=== PATIENT | male | born 1960 | race Caucasian/White ===

== ENCOUNTER 2021-08-30 05:57 | Outpatient (REF) | payer OTHER, SELFPAY ==
[2021-08-30 06:07] LABS: MANUAL DIFF FLAG NO
[2021-08-30 07:26] LABS: Basophils Percent Auto 0.6 % (0-2); Eosinophils Absolute Auto 0.3 X10*3/uL (0.0-0.4); Eosinophils Percent Auto 4.8 % (0-4); Hematocrit 44.8 % (42.0-52.0); Hemoglobin 15.2 g/dl (14.0-18.0); Imm Gran Abs Auto 0.02 X10*3/uL (0.00-0.03); Imm Gran Pct Auto 0.4 % (0.0-0.4); Lymphocytes Absolute Auto 1.8 X10*3/uL (1.2-4.9); Lymphocytes Percent Auto 32.4 % (20-40); Mean Corpuscular HGB Conc 33.9 g/dl (31.0-36.0); Mean Corpuscular Hemoglobin 30.3 pg (27.0-33.0); Mean Corpuscular Volume 89.2 fL (80.0-98.0); Mean Platelet Volume 10.8 fL (9.4-12.4); Monocytes Absolute Auto 0.7 X10*3/uL (0.1-1.2); Monocytes Percent Auto 13.1 % (2-11); Neutrophils Absolute Auto 2.7 x10*3/uL (2.0-8.3); Neutrophils Percent Auto 48.7 % (45-73); Platelet Count 219 X10*3/uL (160-400); Red Blood Count 5.02 X10*6/uL (4.60-5.80); White Blood Count 5.4 X10*3/uL (4.8-10.8)
[2021-08-30 07:59] LABS: Alanine Aminotransferase 25 U/L (0-40); Albumin Level 4.3 g/dL (3.5-5.0); Alkaline Phosphatase 73 U/L (39-117); Anion Gap 13 (12-20); Aspartate Amino Transferase 21 U/L (5-37); Bilirubin Total 0.7 mg/dL (0.0-1.0); Blood Urea Nitrogen 18 mg/dL (9-16); Calcium 9.2 mg/dL (8.4-10.2); Carbon Dioxide 28 mmol/L (22-29); Chloride 101 mmol/L (96-108); Cholesterol 256 mg/dL; Estimated Glomerular Filt Rate > 60; Glucose Fasting 101 mg/dL (60-99); HDL Cholesterol 69 mg/dL; LDL Cholesterol Calculated 162 mg/dl; Potassium 4.5 mmol/L (3.3-5.1); Sodium 137 mmol/L (135-145); Total Protein 6.8 g/dL (6.5-8.0); Triglycerides 129 mg/dL
[2021-08-30 08:33] LABS: Appearance Urine CLEAR; Color Urine YELLOW; Glucose Urine UA NEG (NEG); Leukocyte Esterase Urine NEG (NEG); Nitrite Urine NEG (NEG); Urine Blood NEG (NEG); Urine Ketones NEG (NEG); Urine Protein NEG (NEG-TRACE)
[2021-08-30 08:34] LABS: Prostate Specific Antigen 0.27 ng/mL (<0.05-4.0); TSH reflex Free T4 2.34 uIU/mL (0.32-4.0); Vitamin D 25-OH Total 24.2 ng/mL (>30)
== END 2021-08-30 05:58 | disposition home or self-care (01) ==
LOC: HO.LAB 05:57
PROVIDERS: PCP Internal Medicine; Visit Provider Internal Medicine
DX: Z00.00 Encounter for general adult medical examination without abnormal findings (principal); Z12.5 Encounter for screening for malignant neoplasm of prostate; N40.0 Benign prostatic hyperplasia without lower urinary tract symptoms; I10 Essential (primary) hypertension; E55.9 Vitamin D deficiency, unspecified; E78.00 Pure hypercholesterolemia, unspecified
CPT/HCPCS: 36415; 80053; 80061; 81003; 82306; 84153; 84443; 85025

== ENCOUNTER 2022-08-29 05:57 | Outpatient (REF) | payer OTHER, SELFPAY ==
[2022-08-29 06:09] LABS: MANUAL DIFF FLAG NO
[2022-08-29 07:30] LABS: Basophils Percent Auto 0.6 % (0-2); Eosinophils Absolute Auto 0.2 X10*3/uL (0.0-0.4); Eosinophils Percent Auto 4.3 % (0-4); Hematocrit 44.7 % (42.0-52.0); Hemoglobin 15.2 g/dl (14.0-18.0); Imm Gran Abs Auto 0.01 X10*3/uL (0.00-0.03); Imm Gran Pct Auto 0.2 % (0.0-0.4); Lymphocytes Absolute Auto 1.7 X10*3/uL (1.2-4.9); Lymphocytes Percent Auto 32.2 % (20-40); Mean Corpuscular Hemoglobin 30.2 pg (27.0-33.0); Mean Corpuscular Volume 88.9 fL (80.0-98.0); Mean Platelet Volume 10.8 fL (9.4-12.4); Monocytes Absolute Auto 0.6 X10*3/uL (0.1-1.2); Monocytes Percent Auto 10.7 % (2-11); Neutrophils Absolute Auto 2.8 x10*3/uL (2.0-8.3); Platelet Count 209 X10*3/uL (160-400); Red Blood Count 5.03 X10*6/uL (4.60-5.80); Red Cell Distribution Width 12.8 % (11.0-16.0); White Blood Count 5.4 X10*3/uL (4.8-10.8)
[2022-08-29 08:07] LABS: Alanine Aminotransferase 28 U/L (0-40); Albumin Level 4.4 g/dL (3.5-5.0); Alkaline Phosphatase 69 U/L (39-117); Anion Gap 12 (12-20); Aspartate Amino Transferase 22 U/L (5-37); Bilirubin Total 1.1 mg/dL (0.0-1.0); Blood Urea Nitrogen 16 mg/dL (9-16); Calcium 9.2 mg/dL (8.4-10.2); Carbon Dioxide 27 mmol/L (22-29); Chloride 103 mmol/L (96-108); Cholesterol 220 mg/dL; Estimated Glomerular Filt Rate > 60; Glucose Fasting 98 mg/dL (60-99); HDL Cholesterol 78 mg/dL; LDL Cholesterol Calculated 121 mg/dl; Potassium 4.1 mmol/L (3.3-5.1); Sodium 138 mmol/L (135-145); Total Protein 6.7 g/dL (6.5-8.0); Triglycerides 105 mg/dL
[2022-08-29 08:31] LABS: Prostate Specific Antigen Scr 0.34 ng/mL (<0.05-4.0); TSH reflex Free T4 2.87 uIU/mL (0.32-4.0); Vitamin D 25-OH Total 28.6 ng/mL (>30)
[2022-08-29 09:02] LABS: Appearance Urine Clear; Color Urine Yellow; Glucose Urine UA Negative (Negative); Leukocyte Esterase Urine Negative (Negative); Nitrite Urine Negative (Negative); PH 6.5 (5.0-9.0); Urine Blood Negative (Negative); Urine Ketones Negative (Negative); Urine Protein Negative (Neg-Trace)
== END 2022-08-29 05:58 | disposition home or self-care (01) ==
LOC: HO.LAB 05:57
PROVIDERS: PCP Internal Medicine; Visit Provider Internal Medicine
DX: Z00.00 Encounter for general adult medical examination without abnormal findings (principal); Z12.5 Encounter for screening for malignant neoplasm of prostate; E55.9 Vitamin D deficiency, unspecified; I10 Essential (primary) hypertension; R30.0 Dysuria; E78.00 Pure hypercholesterolemia, unspecified
CPT/HCPCS: 36415; 80053; 80061; 81003; 82306; 84153; 84443; 85025

== ENCOUNTER 2023-03-01 05:56 | Outpatient (REF) | payer OTHER, SELFPAY ==
[2023-03-01 08:15] LABS: Alanine Aminotransferase 28 U/L (0-40); Albumin Level 4.4 g/dL (3.5-5.0); Alkaline Phosphatase 72 U/L (39-117); Anion Gap 11 (12-20); Aspartate Amino Transferase 21 U/L (5-37); Bilirubin Total 0.8 mg/dL (0.0-1.0); Blood Urea Nitrogen 19 mg/dL (9-16); Calcium 9.4 mg/dL (8.4-10.2); Carbon Dioxide 27 mmol/L (22-29); Chloride 104 mmol/L (96-108); Cholesterol 202 mg/dL (<200); Estimated Glomerular Filt Rate > 60; Glucose Fasting 103 mg/dL (60-99); HDL Cholesterol 66 mg/dL (>40); LDL Cholesterol Calculated 114 mg/dL (<100); Potassium 3.9 mmol/L (3.3-5.1); Sodium 138 mmol/L (135-145); Total Protein 7.2 g/dL (6.5-8.0); Triglycerides 111 mg/dL (<150)
[2023-03-01 08:34] LABS: Vitamin D 25-OH Total 27.5 ng/mL (>30)
== END 2023-03-01 05:57 | disposition home or self-care (01) ==
LOC: HO.LAB 05:56
PROVIDERS: PCP Internal Medicine; Visit Provider Internal Medicine
DX: E55.9 Vitamin D deficiency, unspecified (principal); E78.00 Pure hypercholesterolemia, unspecified
CPT/HCPCS: 36415; 80053; 80061; 82306

== ENCOUNTER 2023-03-02 09:11 | Outpatient (AMB) | payer OTHER, SELFPAY ==
[2023-03-02 09:12] VITALS: BP 132/80; PULSE 78; O2SAT 96; BMI 32.2
--- NOTE | 2023-03-02 09:12 | A.OFFPC_ITS ---
Vital Signs 03/02/23 09:12 Height 5 ft 7.5 in Weight 209 lb BMI 32.2 BP 132/80 Blood Pressure Location Lt brachial Position Sitting Pulse 78 Pulse Source Pulse Oximeter Pulse Oximetry (%) 96 Oxygen Delivery Method Room Air Intake Visit Reasons: HTN, hyperlipidemia Zigzag Machine Operator Required: No Accompanied by: Self / Same As Patient Allergies fish derived [FISH] Allergy (Severe, Verified 03/02/23 09:51) ANAPHYLAXIS seafood Allergy (Severe, Uncoded 03/02/23 09:51) Anaphylaxis Medication List - Last Reconciled 03/02/23 by Alex Grady MD atorvastatin 20 mg PO DAILY 90 days cholecalciferol (vitamin D3) 50 mcg PO DAILY 90 days epinephrine (EpiPen 2-Chalo) 0.3 mg (0.3 mL) IM Q4H PRN lisinopril 5 mg PO DAILY 90 days Tobacco use date assessed: 03/02/23 Dental Screening Dental Screen Date: 03/02/23 Did you have a dental visit in the last 12 months?: Yes Did you have a dental problem in the last 6 months where you did not have access to dental care?: No Was dental information given to patient?: Patient has dentist HPI HTN, hyperlipidemia HPI Details Patient comes in today for his follow up visit States that he feels okay except for some recurrent nasal and sinus congestion lately Notes that he often wakes up in the morning feeling congested and this will slowly ease up over some time Also started experiencing some pressure-like sensation in his right ear lately Is wondering if he is coming down with a sinus infection He denies any fever or sore throat; denies any headaches or dizziness Still has occasional ringing sensation in his ear and was seen and evaluated by ENT a few months ago Was advised that he has no abnormal findings and as his symptoms are not unbearable, recommend no further intervention at this time Denies any chest pains, no SOB No nausea/vomiting, no abdominal pain No change in bowel habits noted Had his follow up labs done yesterday - to discuss his results [facility] Medical History Vitamin D deficiency Smoker Obesity (BMI 30-39.9) Pure hypercholesterolemia Benign essential hypertension Benign lymphoid polyp of colon Surgical History History of colonoscopy (~08/14/14) Hx laparoscopic cholecystectomy Family History Brother Substance abuse Other Alcohol abuse Social History Housing: House Alcohol intake: current Alcohol intake frequency: a few times a week Patient Tobacco Use Status: Current someday Tobacco user Tobacco use type: Cigarette and Cigar e-Cigarette/Vaping Use: Never Used Second Hand Smoke Exposure: Yes service: No Current occupational status: retired Cognitive needs: No Hearing needs: No Vision needs: No Questionnaire PHQ-9 Over the last 2 weeks, how often have you been bothered by any of the following problems? 1. Little interest or pleasure in doing things: not at all 2. Feeling down, depressed, or hopeless: not at all 3. Trouble falling or staying asleep, or sleeping too much: not at all 4. Feeling tired or having little energy: not at all 5. Poor appetite or overeating: not at all 6. Feeling bad about yourself - or that you are a failure or have let yourself or your family down: not at all 7. Trouble concentrating on things, such as reading the newspaper or watching television: not at all 8. Moving or speaking so slowly that other people could have noticed. Or the opposite - being so fidgety or restless that you have been moving around a lot more than usual: not at all 9. Thoughts that you would be better off or of hurting yourself in some way: not at all Total score: 0 Depression Screening Interpretation: Negative Depression Screening Done: Yes 93119 - PHQ-9 Billing: Yes Source: Developed by Drs. Palomo Felipe, Danielle Parker, Erick Escalera and colleagues, with an educational karthik from [employer]. Thrive Questionnaire Date Thrive assessed: 03/02/23 I am a: Patient What is your living situation today?: I have a steady place to live Within the past 12 months, did the food you bought not last and you didn't have the money to get more?: Never true Within the past 12 months, did you worry whether your food would run out before you got money to buy more?: Never true Do you have trouble paying for medicines?: No Do you have trouble getting transportation to medical appointments?: No Do you have trouble paying your heating and electricity bill?: No Do you have trouble taking care of your child, family member or friend?: No Do you have trouble with day-to-day activities such as bathing, preparing meals, shopping, managing finances, etc.?: No Are you currently unemployed and looking for a job?: No Are you interested in more education?: No Please select the resources that you would like help with: None Currently or been in a relationship where the following occur: no concerns reported AUDIT C Alcohol Use Questionnaire (AUDIT-C) 1. How often do you have a drink containing alcohol?: 2-3 times a week 2. How many drinks containing alcohol do you have on a typical day when you are drinking?: 1 or 2 3. How often do you have six or more drinks on one occasion?: Never Total Score: 3 Score Reviewed/Action Taken: Yes ZION-7 AMB Questionnaire ZION-7 Date ZION - 7 assessed: 03/02/23 Feeling nervous, anxious, or on edge: 0 = Not at all Not being able to stop or control worryin = Not at all Worrying too much about different things: 0 = Not at all Trouble relaxin = Not at all Being so restless that it is hard to sit still: 0 = Not at all Becoming easily annoyed or irritable: 0 = Not at all Feeling afraid as if something awful might happen: 0 = Not at all Total ZION-7 score (0-4 normal; 5-9 mild; 10-14 moderate; 15-21 severe): 0 Source: Developed by Drs. Palomo Felipe, Danielle Parker, Erick Escalera and colleagues, with an educational karthik from [employer]. Review of Systems Const Denies chills, Denies fatigue, Denies fever(s) and Denies headache(s) ENT Details: (+) on and off humming sensation in his right ear Denies dysphagia, Denies dizziness, Denies ear discharge, Denies otalgia (but (+) pressure-like sensation in the right ear lately), Denies headache(s), Reports nasal congestion (on and off), Reports nasal discharge (on and off - see HPI), Denies neck pain, Denies odynophagia, Reports tinnitus (c/o on and off humming sensation in right ear - feels worse at night), Denies sinus pain and Denies sore throat Card Denies chest pain, Denies palpitations and Denies dyspnea Resp Denies cough and Denies dyspnea GI Denies abdominal pain, Denies constipation, Denies dysphagia, Denies heartburn, Denies diarrhea, Denies nausea, Denies odynophagia and Denies vomiting Denies difficulty urinating, Denies dysuria and Denies urinary frequency Musc Denies back pain and Denies neck pain Skin/Breast Denies rash Neuro Denies dizziness and Denies headache(s) Endo Denies fatigue and Denies palpitations Physical exam (Primary Care) Vital Signs: Last Vital Signs Pulse 78 03/02/23 09:12 BP 132/80 03/02/23 09:12 Pulse Ox 96 03/02/23 09:12 Oxygen Delivery Method Room Air 03/02/23 09:12 BMI result Body Mass Index 32.2 Tobacco/Smoking Status: Tobacco use Status Tobacco use date assessed 03/02/23 03/02/23 09:15 Patient Tobacco Use Status Current someday Tobacco 03/02/23 09:15 Tobacco use type Cigarette,Cigar 03/02/23 09:15 e-Cigarette/Vaping Use Never Used 03/02/23 09:15 PHQ-9: PHQ-9 Score PHQ-9: Total score 0 03/02/23 09:15 Depression Screening Interpretation: Negative Thrive Assessment: Date of Thrive Assessment Date Thrive assessed 03/02/23 03/02/23 09:15 Currently or been in a relationship where the following occur: no concerns reported Const General: no acute distress and alert HENMT Ears: TM's normal bilaterally and EAC's normal Throat: Yes posterior oropharynx normal and Yes tonsils normal (no TP congestion) Neck Neck: Yes no lymphadenopathy and Yes supple Resp Auscultation: clear to auscultation bilaterally, no rales and no wheezes Cardio Rate: regular rate Rhythm: regular rhythm Heart sounds: no murmurs GI Palpation (GI): Soft to palpation, nontender and No hepatosplenomegaly present Skin General skin exam: no rashes or lesions noted Extrem General: Yes no clubbing, cyanosis or edema Results Reviewed Results Reviewed: Laboratory Tests 08/29/22 03/01/23 03/01/23 06:08 06:09 06:09 Sodium 138 Potassium 3.9 Creatinine 1.02 Estimated GFR > 60 Fasting Glucose 103 H Calcium 9.4 AST 21 ALT 28 Triglycerides 111 Cholesterol 202 H LDL Cholesterol, Calc 114 H HDL Cholesterol 66 PSA Screen 0.34 25-OH Vitamin D Total 27.5 L Assessment and Plan Assessment & Plan (1) Pure hypercholesterolemia: Code(s): E78.00 - Pure hypercholesterolemia, unspecified Plan: Results of his labs done yesterday reviewed and discussed with patient - advised that his cholesterol levels have improved slightly from previous but this includes both his LDL and HDL cholesterol levels Reinforced low cholesterol diet Continue Atorvastatin 20 mg QD Will recheck his fasting lipids and labs in 6 months for follow up (2) Benign essential hypertension: Code(s): I10 - Essential (primary) hypertension Plan: Reinforced low sodium diet - goal is systolic BP of at least 120 to 130 mm or less Continue Lisinopril 5 mg QD Patient is reminded to monitor his blood pressure regularly (3) Vitamin D deficiency: Code(s): E55.9 - Vitamin D deficiency, unspecified Plan: Advised that his Vitamin D level is still low on his recent labs - States that he was not taking his Vitamin D supplement for a while but started back on it a couple of weeks ago - is instructed to continue taking it daily (4) Rhinitis: Code(s): J31.0 - Chronic rhinitis Qualifiers: Rhinitis type: unspecified Qualified Code(s): J31.0 - Chronic rhinitis Plan: Likely vasomotor and/or cold-induced Will start him on Fluticasone nasal spray 50 mcg QD He is advised to call if his symptoms persist or worsen despite Rx (5) Smoker: Code(s): F17.200 - Nicotine dependence, unspecified, uncomplicated Plan: Counseled again on smoking cessation (6) Obesity (BMI 30-39.9): Code(s): E66.9 - Obesity, unspecified Plan: Reinforced diet/exercise as tolerated/lose weight Plan To return in 6 months for his next annual physical examination Orders: Orders Lipid Panel 6 Months E78.00 - Pure hypercholesterolemia, unspecified, Z00.00 - Encounter for general adult medical examination without abnormal findings UA CC w/rflx Micro + Cult 6 Months R30.0 - Dysuria, Z00.00 - Encounter for general adult medical examination without abnormal findings Vitamin D 25-OH Total 6 Months E55.9 - Vitamin D deficiency, unspecified, Z00.00 - Encounter for general adult medical examination without abnormal findings Complete Blood Count Auto Diff 6 Months I10 - Essential (primary) hypertension, Z00.00 - Encounter for general adult medical examination without abnormal findings Comprehensive [place]. Panel Fast 6 Months E78.00 - Pure hypercholesterolemia, unspecified, Z00.00 - Encounter for general adult medical examination without abnormal findings TSH reflex Free T4 6 Months E78.00 - Pure hypercholesterolemia, unspecified, Z00.00 - Encounter for general adult medical examination without abnormal findings Prostate Specific Antigen 6 Months N40.0 - Benign prostatic hyperplasia without lower urinary tract symptoms, Z00.00 - Encounter for general adult medical examination without abnormal findings Medications: New fluticasone propionate 50 mcg/actuation administer into each nostril 2 sprays intranasal DAILY 30 days PRN 16 grams 5RF allergy symptoms Coding Level of Care Code Est Pt Level 4 (43645) Diagnoses Pure hypercholesterolemia E78.00 Benign essential hypertension I10 Vitamin D deficiency E55.9 Rhinitis, unspecified type J31.0 Rhinitis type: unspecified Smoker F17.200 Obesity (BMI 30-39.9) E66.9
== END 2023-03-02 10:05 | disposition home or self-care (01) ==
PROVIDERS: PCP Internal Medicine; Visit Provider Internal Medicine
DX: E78.00 Pure hypercholesterolemia, unspecified (principal); I10 Essential (primary) hypertension; E55.9 Vitamin D deficiency, unspecified; J31.0 Chronic rhinitis; F17.210 Nicotine dependence, cigarettes, uncomplicated; F01-F99 Mental, behavioral and neurodevelopmental disorders; E66.9 Obesity, unspecified
CPT/HCPCS: 99214

== ENCOUNTER 2023-08-20 08:07 | Outpatient (AMB) | payer OTHER, SELFPAY ==
--- NOTE | 2023-08-20 08:36 | MHC.OFFWIV ---
Intake Vital Signs 08/20/23 08:40 Height 5 ft 7.5 in Weight 213 lb BMI 32.9 BP 140/90 H Blood Pressure Location Lt brachial Position Sitting Pulse 73 Pulse Source Pulse Oximeter Temp 97.8 F Temp Source Temporal Artery Scan Pulse Oximetry (%) 96 Oxygen Delivery Method Room Air Intake Visit Reasons: EP rt foot poison hal/rash??? Intake Note: pt is here today for rt foot poison hal started 1 month ago Patient Tobacco Use Status: Current someday Tobacco user Allergies fish derived [FISH] Allergy (Severe, Verified 08/20/23 08:43) ANAPHYLAXIS seafood Allergy (Severe, Uncoded 08/20/23 08:43) Anaphylaxis Do you need a note to return to daycare/school/sports/work: No HPI HPI Comments History of Present Illness Details Patient presents to the walkin today for sick visit endorses rash to top of right foot for last one month reports had the same rash last summer, applied topical eczema cream and it resolved about one month ago the rash returned not painful but is itchy [facility] Medical History Vitamin D deficiency Smoker Obesity (BMI 30-39.9) Pure hypercholesterolemia Benign essential hypertension Benign lymphoid polyp of colon Surgical History History of colonoscopy (~08/14/14) Hx laparoscopic cholecystectomy Family History Brother Substance abuse Other Alcohol abuse Social History Housing: House Alcohol intake: current Alcohol intake frequency: a few times a week Patient Tobacco Use Status: Current someday Tobacco user Tobacco use type: Cigarette and Cigar e-Cigarette/Vaping Use: Never Used Second Hand Smoke Exposure: Yes service: No Current occupational status: retired Cognitive needs: No Hearing needs: No Vision needs: No Review of Systems Const All systems reviewed & are unremarkable except as noted in HPI and below Physical Exam Vital Signs: Last Vital Signs Temp 97.8 F 08/20/23 08:40 Pulse 73 08/20/23 08:40 BP 140/90 H 08/20/23 08:40 Pulse Ox 96 08/20/23 08:40 Oxygen Delivery Method Room Air 08/20/23 08:40 BMI result Body Mass Index 32.9 General: awake, alert, oriented. Answers questions appropriately. Fully engaged in examination. Skin: warm, dry, intact. 1cm X 1cm erythematous rash to top of right foot. dry, white around circumference. no weeping, drainage or streaking noted HEENT: Normocephalic. Hearing intact. Cardiac: External chest normal in appearance. Respiratory: No cough, audible wheezing or stridor. Abdomen: without gross distension. MS: No obvious swelling or deformities. Neurological: Oriented to person, place, time and situation. Thought process intact. No gait abnormalities appreciated. Psychiatric: Appropriate mood and affect. Good judgment and insight. Assessment & Plan Assessment & Plan (1) Dermatitis: Code(s): L30.9 - Dermatitis, unspecified Plan apply topical medication as prescribed follow up with dermatology, referral placed advised patient to avoid wearing shoes without socks until resolved follow up with pcp or return here for any new or worsening symptoms Orders: Referrals Dermatology Referral L30.9 - Dermatitis, unspecified Medications: New triamcinolone acetonide 0.1% 1 appl topical BID 30 grams 0RF Coding Level of Care Code Est Pt Level 3 (63811) Diagnoses Dermatitis L30.9
[2023-08-20 08:40] VITALS: BP 140/90; PULSE 73; TEMP 36.6; O2SAT 96; BMI 32.9
== END 2023-08-20 09:09 | disposition home or self-care (01) ==
PROVIDERS: PCP Internal Medicine; Visit Provider Registered Nurse Emergency
DX: L30.9 Dermatitis, unspecified (principal)
CPT/HCPCS: 99213

== ENCOUNTER 2023-08-30 06:00 | Outpatient (REF) | payer OTHER, SELFPAY ==
[2023-08-30 06:19] LABS: MANUAL DIFF FLAG NO
[2023-08-30 07:48] LABS: Basophils Percent Auto 0.4 % (0-2); Eosinophils Absolute Auto 0.3 X10*3/uL (0.0-0.4); Eosinophils Percent Auto 3.6 % (0-4); Hematocrit 46.4 % (42.0-52.0); Hemoglobin 15.8 g/dl (14.0-18.0); Imm Gran Abs Auto 0.02 X10*3/uL (0.00-0.03); Imm Gran Pct Auto 0.3 % (0.0-0.4); Lymphocytes Absolute Auto 2.1 X10*3/uL (1.2-4.9); Lymphocytes Percent Auto 30.5 % (20-40); Mean Corpuscular HGB Conc 34.1 g/dl (31.0-36.0); Mean Corpuscular Hemoglobin 30.7 pg (27.0-33.0); Mean Corpuscular Volume 90.1 fL (80.0-98.0); Mean Platelet Volume 10.7 fL (9.4-12.4); Monocytes Absolute Auto 0.7 X10*3/uL (0.1-1.2); Monocytes Percent Auto 10.6 % (2-11); Neutrophils Absolute Auto 3.8 x10*3/uL (2.0-8.3); Neutrophils Percent Auto 54.6 % (45-73); Platelet Count 231 X10*3/uL (160-400); Red Blood Count 5.15 X10*6/uL (4.60-5.80); Red Cell Distribution Width 12.7 % (11.0-16.0); White Blood Count 6.9 X10*3/uL (4.8-10.8)
[2023-08-30 08:16] LABS: Alanine Aminotransferase 28 U/L (0-40); Albumin Level 4.3 g/dL (3.5-5.0); Alkaline Phosphatase 70 U/L (39-117); Anion Gap 13 (12-20); Aspartate Amino Transferase 22 U/L (5-37); Bilirubin Total 0.7 mg/dL (0.0-1.0); Blood Urea Nitrogen 19 mg/dL (9-16); Calcium 9.3 mg/dL (8.4-10.2); Carbon Dioxide 27 mmol/L (22-29); Chloride 103 mmol/L (96-108); Cholesterol 216 mg/dL (<200); Estimated Glomerular Filt Rate > 60; Glucose Fasting 107 mg/dL (60-99); HDL Cholesterol 69 mg/dL (>40); Potassium 4.3 mmol/L (3.3-5.1); Sodium 139 mmol/L (135-145); Total Protein 7.1 g/dL (6.5-8.0)
[2023-08-30 08:24] LABS: LDL Cholesterol Calculated 114 mg/dL (<100); Triglycerides 166 mg/dL (<150)
[2023-08-30 08:27] LABS: Prostate Specific Antigen 0.38 ng/mL (<0.05-4.0)
[2023-08-30 08:28] LABS: Appearance Urine Clear; Color Urine Yellow; Glucose Urine UA Negative (Negative); Leukocyte Esterase Urine Negative (Negative); Nitrite Urine Negative (Negative); Specific Gravity - Urine 1.025 (1.005-1.025); Urine Blood Negative (Negative); Urine Ketones Negative (Negative); Urine Protein Negative (Neg-Trace)
[2023-08-30 08:31] LABS: TSH reflex Free T4 1.94 uIU/mL (0.32-4.0); Vitamin D 25-OH Total 27.5 ng/mL (>30)
== END 2023-08-30 06:01 | disposition home or self-care (01) ==
LOC: HO.LAB 06:00
PROVIDERS: PCP Internal Medicine; Visit Provider Internal Medicine
DX: Z00.00 Encounter for general adult medical examination without abnormal findings (principal); R30.0 Dysuria; E78.00 Pure hypercholesterolemia, unspecified; E55.9 Vitamin D deficiency, unspecified; I10 Essential (primary) hypertension; N40.0 Benign prostatic hyperplasia without lower urinary tract symptoms; Z12.5 Encounter for screening for malignant neoplasm of prostate
CPT/HCPCS: 36415; 80053; 80061; 81003; 82306; 84153; 84443; 85025

== ENCOUNTER 2023-09-04 08:44 | Outpatient (AMB) | payer OTHER, SELFPAY ==
[2023-09-04 08:45] VITALS: BP 144/80; PULSE 74; O2SAT 96; BMI 33.2
--- NOTE | 2023-09-04 08:45 | A.OFFPC_ITS ---
Vital Signs 09/04/23 08:45 09/04/23 09:34 Height 5 ft 7.5 in Weight 215 lb BMI 33.2 BP 144/80 H 148/92 H Blood Pressure Location Lt brachial Lt brachial Position Sitting Sitting Pulse 74 Pulse Source Pulse Oximeter Pulse Oximetry (%) 96 Oxygen Delivery Method Room Air Intake Visit Reasons: Annual Exam Intake Note: Patient is here today for a physical. Veneer Taper Required: No Allergies fish derived [FISH] Allergy (Severe, Verified 09/04/23 09:15) ANAPHYLAXIS seafood Allergy (Severe, Uncoded 09/04/23 09:15) Anaphylaxis Medication List - Last Reconciled 09/04/23 by Alex Grady MD atorvastatin 20 mg PO DAILY 90 days cholecalciferol (vitamin D3) 50 mcg PO DAILY 90 days epinephrine (EpiPen 2-Chalo) 0.3 mg (0.3 mL) IM Q4H PRN fluticasone propionate 50 mcg/actuation 2 sprays intranasal DAILY PRN 30 days lisinopril 5 mg PO DAILY 90 days triamcinolone acetonide 0.1% 1 appl topical BID Tobacco use date assessed: 09/04/23 Dental Screening Dental Screen Date: 09/04/23 Did you have a dental visit in the last 12 months?: Yes Did you have a dental problem in the last 6 months where you did not have access to dental care?: No Was dental information given to patient?: Patient has dentist HPI Annual Exam HPI Details Patient comes in today for his annual physical examination States that he feels okay He denies any headaches or dizziness Denies any chest pains, no SOB No nausea/vomiting, no abdominal pain No change in bowel habits noted He denies any acute urinary symptoms Had his follow up labs done a few days ago - to discuss his results He had his screening colonoscopy last done with Dr. Ruiz on 08/14/2014 (normal) and was recommended to get a repeat colonoscopy in 10 years (2024) [facility] Medical History (Updated 09/04/23 @ 09:33 by Alex Grady MD) Seafood allergy Vitamin D deficiency Smoker Obesity (BMI 30-39.9) Pure hypercholesterolemia Benign essential hypertension Benign lymphoid polyp of colon Surgical History History of colonoscopy (~08/14/14) Hx laparoscopic cholecystectomy Family History Brother Substance abuse Other Alcohol abuse Social History Housing: House Alcohol intake: current Alcohol intake frequency: a few times a week Patient Tobacco Use Status: Current someday Tobacco user Tobacco use type: Cigarette and Cigar e-Cigarette/Vaping Use: Never Used Second Hand Smoke Exposure: Yes service: No Current occupational status: retired Cognitive needs: No Hearing needs: No Vision needs: No Questionnaire PHQ-9 Over the last 2 weeks, how often have you been bothered by any of the following problems? 1. Little interest or pleasure in doing things: not at all 2. Feeling down, depressed, or hopeless: not at all 3. Trouble falling or staying asleep, or sleeping too much: not at all 4. Feeling tired or having little energy: not at all 5. Poor appetite or overeating: not at all 6. Feeling bad about yourself - or that you are a failure or have let yourself or your family down: not at all 7. Trouble concentrating on things, such as reading the newspaper or watching television: not at all 8. Moving or speaking so slowly that other people could have noticed. Or the opposite - being so fidgety or restless that you have been moving around a lot more than usual: not at all 9. Thoughts that you would be better off or of hurting yourself in some way: not at all Total score: 0 Depression Screening Interpretation: Negative Depression Screening Done: Yes 71454 - PHQ-9 Billing: Yes Source: Developed by Drs. Palomo Felipe, Danielle Parker, Erick Escalera and colleagues, with an educational karthik from [employer]. Thrive Questionnaire Date Thrive assessed: 09/04/23 I am a: Patient What is your living situation today?: I have a steady place to live Within the past 12 months, did the food you bought not last and you didn't have the money to get more?: Never true Within the past 12 months, did you worry whether your food would run out before you got money to buy more?: Never true Do you have trouble paying for medicines?: No Do you have trouble getting transportation to medical appointments?: No Do you have trouble paying your heating and electricity bill?: No Do you have trouble taking care of your child, family member or friend?: No Do you have trouble with day-to-day activities such as bathing, preparing meals, shopping, managing finances, etc.?: No Are you currently unemployed and looking for a job?: No Are you interested in more education?: No Please select the resources that you would like help with: None Currently or been in a relationship where the following occur: no concerns reported THRIVE Score: 0 AUDIT C Alcohol Use Questionnaire (AUDIT-C) 1. How often do you have a drink containing alcohol?: 2-3 times a week 2. How many drinks containing alcohol do you have on a typical day when you are drinking?: 1 or 2 3. How often do you have six or more drinks on one occasion?: Never Total Score: 3 Score Reviewed/Action Taken: Yes ZION-7 AMB Questionnaire ZION-7 Date ZION - 7 assessed: 09/04/23 Feeling nervous, anxious, or on edge: 0 = Not at all Not being able to stop or control worryin = Not at all Worrying too much about different things: 0 = Not at all Trouble relaxin = Not at all Being so restless that it is hard to sit still: 0 = Not at all Becoming easily annoyed or irritable: 0 = Not at all Feeling afraid as if something awful might happen: 0 = Not at all Total ZION-7 score (0-4 normal; 5-9 mild; 10-14 moderate; 15-21 severe): 0 Source: Developed by Drs. Palomo Felipe, Danielle Parker, Erick Escalera and colleagues, with an educational karthik from [employer]. Review of Systems Const Denies chills, Denies fatigue, Denies fever(s), Denies headache(s), Denies malaise and Denies weakness Eyes Denies blurry vision, Denies change in vision, Denies irritation and Denies itchy eyes ENT Denies dysphagia, Denies dizziness, Denies otalgia, Denies headache(s), Denies nasal congestion, Denies neck pain, Denies odynophagia and Denies sore throat Card Denies chest pain, Denies rapid heart rate, Denies irregular heart rhythm, Denies palpitations and Denies dyspnea Resp Denies chest congestion, Denies cough, Denies dyspnea and Denies wheezing GI Denies abdominal pain, Denies bloating, Denies constipation, Denies dysphagia, Denies heartburn, Denies diarrhea, Denies nausea, Denies odynophagia and Denies vomiting Denies hematuria, Denies difficulty urinating, Denies dysuria, Denies urinary frequency and Denies urinary urgency Musc Denies back pain, Denies arthralgias, Denies joint swelling, Denies muscle weakness and Denies neck pain Skin/Breast Denies change in pigmentation, Denies lesions, Denies rash and Denies unusual bruising Neuro Denies dizziness, Denies headache(s), Denies paresthesias and Denies weakness Endo Denies fatigue and Denies palpitations Aller/Immun Denies itchy eyes and Denies wheezing Physical exam (Primary Care) Vital Signs: Last Vital Signs Pulse 74 09/04/23 08:45 BP 144/80 H 09/04/23 08:45 Pulse Ox 96 09/04/23 08:45 Oxygen Delivery Method Room Air 09/04/23 08:45 BMI result Body Mass Index 33.2 Tobacco/Smoking Status: Tobacco use Status Tobacco use date assessed 09/04/23 09/04/23 08:51 Patient Tobacco Use Status Current someday Tobacco 09/04/23 08:51 Tobacco use type Cigarette,Cigar 09/04/23 08:51 e-Cigarette/Vaping Use Never Used 09/04/23 08:51 Depression Screening Interpretation: Negative Thrive Assessment: Date of Thrive Assessment Date Thrive assessed 09/04/23 09/04/23 08:51 Currently or been in a relationship where the following occur: no concerns reported Const General: no acute distress, alert and awake Orientation/consciousness: patient oriented x3 HENMT Head: Yes normocephalic and Yes atraumatic Ears: external ears normal, TM's normal bilaterally and EAC's normal General nose exam: No nasal discharge present Face and sinus: Yes normal facial exam and Yes sinuses nontender Teeth and gingiva: dentition normal Throat: Yes posterior oropharynx normal and Yes tonsils normal (no TP congestion) Eyes Eyelids: Yes eyelids normal Conjunctivae: conjunctivae normal Pupils: Equal, round and reactive pupils present EOM: EOMs intact bilaterally Neck Neck: Yes no lymphadenopathy and Yes supple Thyroid: Thyroid normal Resp Auscultation: clear to auscultation bilaterally, no rales and no wheezes Cardio Rate: regular rate Rhythm: regular rhythm Heart sounds: no murmurs GI Palpation (GI): Soft to palpation, nontender and No hepatosplenomegaly present Auscultation: normal bowel sounds General: Yes no CVA tenderness Back/Spine/Pelvis Back: no CVA tenderness Thoracic/Lumbar Spine: thoracic and lumbar spine normal to inspection Skin Lesions: no lesions Rashes: no rashes Neuro General: patient oriented x3, moves all extremities, no focal motor deficits and CN's II-XI intact bilaterally Cranial nerves: Yes Equal, round and reactive pupils present Cognition (Neuro): normal cognition Gait exam (Neuro): Normal gait present Extrem General: Yes no clubbing, cyanosis or edema Results Reviewed Results Reviewed: Laboratory Tests 08/30/23 08/30/23 06:10 06:15 WBC 6.9 Hgb 15.8 Hct 46.4 Plt Count 231 Sodium 139 Potassium 4.3 Creatinine 1.04 Estimated GFR > 60 Fasting Glucose 107 H AST 22 ALT 28 Triglycerides 166 H Cholesterol 216 H LDL Cholesterol, Calc 114 H HDL Cholesterol 69 Prostate Specific Ag 0.38 25-OH Vitamin D Total 27.5 L TSH 1.94 Ur Specific [place] 1.025 Urine Protein Negative Urine Glucose (UA) Negative Urine Blood Negative Urine Nitrite Negative Ur Leukocyte Esterase Negative Assessment and Plan Assessment & Plan (1) Annual physical exam: Code(s): Z00.00 - Encounter for general adult medical examination without abnormal findings Plan: Results of his labs done a few days ago reviewed and discussed with patient He is up-to-date with his colon cancer screening - will be due for repeat colonoscopy next year in 2024 (2) Benign essential hypertension: Code(s): I10 - Essential (primary) hypertension Plan: Reinforced low sodium diet - goal is systolic BP of at least 120 to 130 mm or less Advised that his blood pressure appears to be staying high for a while now Continue Lisinopril 5 mg QD for now but discussed that if his blood pressure does not improve much over the next few months, then we will likely have to adjust his BP med at his next follow up visit Patient is again reminded to monitor his blood pressure regularly (3) Pure hypercholesterolemia: Code(s): E78.00 - Pure hypercholesterolemia, unspecified Plan: He is advised that his cholesterol levels have increased from previous, especially his TG level which is now at 166 mg/dl Reinforced low cholesterol diet Continue Atorvastatin 20 mg QD for now Will recheck his fasting lipids in 6 months for follow up (4) Vitamin D deficiency: Code(s): E55.9 - Vitamin D deficiency, unspecified Plan: Advised again that his Vitamin D level is still low on his recent labs and that he should start taking Vitamin D supplement daily Patient admits that he has slacked off on his vitamin D over the past few months and will get back on it immediately (5) Impaired fasting glucose: Code(s): R73.01 - Impaired fasting glucose Plan: Patient is also advised that his fasting glucose is still slightly higher than normal on his recent labs Continue low calorie/low carb diet for now Will recheck his FBS and also check his HgbA1c in 6 months for further evaluation (6) Smoker: Code(s): F17.200 - Nicotine dependence, unspecified, uncomplicated Plan: Counseled again on smoking cessation (7) Obesity (BMI 30-39.9): Code(s): E66.9 - Obesity, unspecified Plan: Reinforced diet/exercise as tolerated/lose weight Plan Follow up in 6 months Orders: Orders Lipid Panel 6 Months E78.00 - Pure hypercholesterolemia, unspecified Vitamin D 25-OH Total 6 Months E55.9 - Vitamin D deficiency, unspecified Hemoglobin A1c 6 Months R73.9 - Hyperglycemia, unspecified Comprehensive [place]. Panel Fast 6 Months E78.00 - Pure hypercholesterolemia, unspecified Coding Level of Care Code Est Pt Prev Care 40-64y(03347) Diagnoses Annual physical exam Z00.00 Benign essential hypertension I10 Pure hypercholesterolemia E78.00 Vitamin D deficiency E55.9 Impaired fasting glucose R73.01 Smoker F17.200 Obesity (BMI 30-39.9) E66.9
[2023-09-04 09:34] VITALS: BP 148/92
== END 2023-09-04 09:32 | disposition home or self-care (01) ==
PROVIDERS: PCP Internal Medicine; Visit Provider Internal Medicine
DX: Z00.00 Encounter for general adult medical examination without abnormal findings (principal); I10 Essential (primary) hypertension; E78.00 Pure hypercholesterolemia, unspecified; E55.9 Vitamin D deficiency, unspecified; R73.01 Impaired fasting glucose; F17.200 Nicotine dependence, unspecified, uncomplicated
CPT/HCPCS: 99396

== ENCOUNTER 2024-01-04 10:45 | Outpatient (AMB) | payer BC, SELFPAY ==
[2024-01-04 10:55] VITALS: BP 142/86; PULSE 75; O2SAT 96; BMI 33.4
--- NOTE | 2024-01-04 10:55 | MHC.PC.OV ---
Vital Signs 01/04/24 10:55 Height 5 ft 7.5 in Weight 216 lb 4 oz BMI 33.4 BP 142/86 H Blood Pressure Location Lt brachial Position Sitting Pulse 75 Pulse Source Pulse Oximeter Pulse Oximetry (%) 96 Oxygen Delivery Method Room Air Intake Visit Reasons: Eczema Pulmonary Specialist Required: No Accompanied by: Self / Same As Patient Allergies fish derived [FISH] Allergy (Severe, Verified 01/04/24 11:17) ANAPHYLAXIS seafood Allergy (Severe, Uncoded 01/04/24 11:17) Anaphylaxis Medication List - Last Reconciled 01/04/24 by Alex Grady MD atorvastatin 20 mg PO DAILY 90 days cholecalciferol (vitamin D3) 50 mcg PO DAILY 90 days clotrimazole-betamethasone 1-0.05 % 1 appl topical BID 2 weeks epinephrine (EpiPen 2-Chalo) 0.3 mg (0.3 mL) IM Q4H PRN fluticasone propionate 50 mcg/actuation 2 sprays intranasal DAILY PRN 30 days lisinopril 5 mg PO DAILY 90 days triamcinolone acetonide 0.1% 1 appl topical BID Tobacco use date assessed: 01/04/24 Dental Screening Dental Screen Date: 01/04/24 Did you have a dental visit in the last 12 months?: Yes Did you have a dental problem in the last 6 months where you did not have access to dental care?: No Was dental information given to patient?: Patient has dentist HPI Eczema HPI Details Patient comes in today for further evaluation of a recurrent itchy rash on the top of his right foot States that he's had the recurrent rash for a few months now Recalls that he went to the walk-in clinic in August 2023 for the same complaint and was prescribed some Triamcinolone cream, which he states helps with the itching but does not really clear up the rash completely He also called up recently requesting for a referral to dermatology - have advised him that I have already placed the referral for him yesterday He denies any other acute complaints or symptoms at present COUNT INCLUDES THE [facility] Medical History Seafood allergy Vitamin D deficiency Smoker Obesity (BMI 30-39.9) Pure hypercholesterolemia Benign essential hypertension Benign lymphoid polyp of colon Surgical History History of colonoscopy (~08/14/14) Hx laparoscopic cholecystectomy Family History Brother Substance abuse Other Alcohol abuse Social History Housing: House Alcohol intake: current Alcohol intake frequency: a few times a week Patient Tobacco Use Status: Current someday Tobacco user Tobacco use type: Cigarette and Cigar e-Cigarette/Vaping Use: Never Used Second Hand Smoke Exposure: Yes service: No Current occupational status: retired Cognitive needs: No Hearing needs: No Vision needs: No Questionnaire PHQ-9 Over the last 2 weeks, how often have you been bothered by any of the following problems? 1. Little interest or pleasure in doing things: not at all 2. Feeling down, depressed, or hopeless: not at all 3. Trouble falling or staying asleep, or sleeping too much: not at all 4. Feeling tired or having little energy: not at all 5. Poor appetite or overeating: not at all 6. Feeling bad about yourself - or that you are a failure or have let yourself or your family down: not at all 7. Trouble concentrating on things, such as reading the newspaper or watching television: not at all 8. Moving or speaking so slowly that other people could have noticed. Or the opposite - being so fidgety or restless that you have been moving around a lot more than usual: not at all 9. Thoughts that you would be better off or of hurting yourself in some way: not at all Total score: 0 Depression Screening Interpretation: Negative Depression Screening Done: Yes 68754 - PHQ-9 Billing: Yes Source: Developed by Drs. Palomo Felipe, Danielle Parker, Erick Escalera and colleagues, with an educational karthik from [employer]. Thrive Questionnaire Date Thrive assessed: 01/04/24 I am a: Patient What is your living situation today?: I have a steady place to live Within the past 12 months, did the food you bought not last and you didn't have the money to get more?: Never true Within the past 12 months, did you worry whether your food would run out before you got money to buy more?: Never true Do you have trouble paying for medicines?: No Do you have trouble getting transportation to medical appointments?: No Do you have trouble paying your heating and electricity bill?: No Do you have trouble taking care of your child, family member or friend?: No Do you have trouble with day-to-day activities such as bathing, preparing meals, shopping, managing finances, etc.?: No Are you currently unemployed and looking for a job?: I choose not to answer this question Are you interested in more education?: No Please select the resources that you would like help with: None Currently or been in a relationship where the following occur: No concerns reported THRIVE Score: 0 AUDIT C Alcohol Use Questionnaire (AUDIT-C) 1. How often do you have a drink containing alcohol?: 2-3 times a week 2. How many drinks containing alcohol do you have on a typical day when you are drinking?: 1 or 2 3. How often do you have six or more drinks on one occasion?: Never Total Score: 3 Score Reviewed/Action Taken: Yes ZION-7 AMB Questionnaire ZION-7 Date ZION - 7 assessed: 01/04/24 Feeling nervous, anxious, or on edge: 0 = Not at all Not being able to stop or control worryin = Not at all Worrying too much about different things: 0 = Not at all Trouble relaxin = Not at all Being so restless that it is hard to sit still: 0 = Not at all Becoming easily annoyed or irritable: 0 = Not at all Feeling afraid as if something awful might happen: 0 = Not at all Total ZION-7 score (0-4 normal; 5-9 mild; 10-14 moderate; 15-21 severe): 0 Source: Developed by Drs. Palomo Felipe, Danielle Parker, Erick Escalera and colleagues, with an educational karthik from [employer]. Review of Systems Const Denies fatigue, Denies fever(s) and Denies headache(s) ENT Denies dizziness, Denies headache(s) and Denies sore throat Card Denies chest pain and Denies dyspnea Resp Denies cough and Denies dyspnea GI Denies abdominal pain, Denies change in bowel habits, Denies nausea and Denies vomiting Musc Denies arthralgias Skin/Breast Reports rash (recurrent itchy rash over the dorsum of the right foot) Neuro Denies dizziness, Denies headache(s) and Denies paresthesias Endo Denies fatigue Physical exam (Primary Care) Vital Signs: Last Vital Signs Pulse 75 01/04/24 10:55 BP 142/86 H 01/04/24 10:55 Pulse Ox 96 01/04/24 10:55 Oxygen Delivery Method Room Air 01/04/24 10:55 BMI result Body Mass Index 33.4 Tobacco/Smoking Status: Tobacco use Status Tobacco use date assessed 01/04/24 01/04/24 10:56 Patient Tobacco Use Status Current someday Tobacco 01/04/24 10:56 Tobacco use type Cigarette,Cigar 01/04/24 10:56 e-Cigarette/Vaping Use Never Used 01/04/24 10:56 PHQ-9: PHQ-9 Score PHQ-9: Total score 0 01/04/24 10:56 Depression Screening Interpretation: Negative Thrive Assessment: Date of Thrive Assessment Date Thrive assessed 01/04/24 01/04/24 10:56 Currently or been in a relationship where the following occur: No concerns reported Const General: no acute distress and alert Neck Neck: Yes no lymphadenopathy and Yes supple Resp Auscultation: clear to auscultation bilaterally Cardio Rate: regular rate Rhythm: regular rhythm Heart sounds: no murmurs GI Palpation (GI): Soft to palpation and nontender Skin Other: (+) erythematous patches of scaling rash over the dorsum of the right foot Extrem General: Yes no clubbing, cyanosis or edema Office Procedures Flu Questionnaire Does the patient have a severe egg allergy?: No Immunizations Fluarix Triv [id number] (PF) 45 mcg (15 mcg x 3)/0.5 mL IM syringe Performing Provider: Alex Grady MD [facility] [place] Documented (not given) by: MACIE Ley on 01/04/24 10:59 Reason Not Given: Patient Refused Coding Level of Care Code Est Pt Level 3 (98146) Diagnoses Eczema, unspecified type L30.9 Eczema type: unspecified Assessment & Plan Assessment & Plan (1) Eczema: Code(s): L30.9 - Dermatitis, unspecified Category: Medical Qualifiers: Eczema type: unspecified Qualified Code(s): L30.9 - Dermatitis, unspecified Plan: Patient states that the Tramcinolone cream that was prescribed for him at the walk-in clinic a few months ago helped with the itching but the rash continues to recur Will start him instead on Lotrisone cream BID x 10 to 14 days - it is possible that the rash may also be partly due to some fungal infection and Lotrisone should work better for the rash Have advised patient that, as he has requested, a referral was already made out for him yesterday to Dr. Casey Plata at [facility] and that they should be reaching out to him soon to schedule an appointment for him Plan Follow up as scheduled in February 2024 Orders: Orders Influenza [id number] Immunization Today Z23 - Encounter for immunization Medications: New clotrimazole-betamethasone 1-0.05 % 1 appl topical BID 2 weeks 45 grams 0RF
== END 2024-01-04 11:17 | disposition home or self-care (01) ==
PROVIDERS: PCP Internal Medicine; Visit Provider Internal Medicine
DX: L30.9 Dermatitis, unspecified (principal); Z23 Encounter for immunization

== ENCOUNTER → 2024-01-04 10:45 | Outpatient (BNVA) | payer BC, SELFPAY | PROVIDERS: PCP Internal Medicine; Visit Provider Internal Medicine | DX: L30.9 Dermatitis, unspecified (principal); Z28.21 Immunization not carried out because of patient refusal | CPT/HCPCS: 90471; 96127 ==

== ENCOUNTER 2024-02-29 05:59 | Outpatient (REF) | payer BC, SELFPAY ==
[2024-02-29 07:54] LABS: Estimated Average Glucose 114 mg/dL; Hemoglobin A1C 145.9839 umol/L; Hemoglobin A1c % 5.6 % (<6.0)
[2024-02-29 08:26] LABS: Albumin Level 4.3 g/dL (3.5-5.0); Anion Gap 13 (12-20); Aspartate Amino Transferase 25 U/L (5-37); Bilirubin Total 0.6 mg/dL (0.0-1.0); Blood Urea Nitrogen 19 mg/dL (9-16); Calcium 9.3 mg/dL (8.4-10.2); Carbon Dioxide 23 mmol/L (22-29); Chloride 104 mmol/L (96-108); Cholesterol 242 mg/dL (<200); Estimated Glomerular Filt Rate > 60; Glucose Fasting 106 mg/dL (60-99); HDL Cholesterol 61 mg/dL (>40); LDL Cholesterol Calculated 162 mg/dL (<100); Potassium 4.1 mmol/L (3.3-5.1); Sodium 136 mmol/L (135-145); Total Protein 6.8 g/dL (6.5-8.0); Triglycerides 98 mg/dL (<150)
[2024-02-29 08:39] LABS: Vitamin D 25-OH Total 29.2 ng/mL (>30)
[2024-02-29 08:52] LABS: Alanine Aminotransferase 34 U/L (0-40); Alkaline Phosphatase 66 U/L (39-117)
== END 2024-02-29 06:00 | disposition home or self-care (01) ==
LOC: HO.LAB 05:59
PROVIDERS: PCP Internal Medicine; Visit Provider Internal Medicine
DX: E55.9 Vitamin D deficiency, unspecified (principal); R73.9 Hyperglycemia, unspecified; E78.00 Pure hypercholesterolemia, unspecified
CPT/HCPCS: 36415; 80053; 80061; 82306; 83036

== ENCOUNTER 2024-03-05 09:36 | Outpatient (AMB) | payer BC, SELFPAY ==
[2024-03-05 09:37] VITALS: BP 136/82; PULSE 76; O2SAT 96; BMI 33.1
--- NOTE | 2024-03-05 09:37 | A.OFFPC_ITS ---
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 Accompanied by: Self / Same As Patient Allergies fish derived [FISH] Allergy (Severe, Verified 03/05/24 09:38) ANAPHYLAXIS seafood Allergy (Severe, Uncoded 03/05/24 09:38) Anaphylaxis Tobacco use date assessed: 03/05/24 Dental Screening Dental Screen Date: 03/05/24 Did you have a dental visit in the last 12 months?: Yes Did you have a dental problem in the last 6 months where you did not have access to dental care?: No Was dental information given to patient?: Patient has dentist [facility] Medical History Seafood allergy Vitamin D deficiency Smoker Obesity (BMI 30-39.9) Pure hypercholesterolemia Benign essential hypertension Benign lymphoid polyp of colon Surgical History History of colonoscopy (~08/14/14) Hx laparoscopic cholecystectomy Family History Brother Substance abuse Other Alcohol abuse Social History Housing: House Alcohol intake: current Alcohol intake frequency: a few times a week Patient Tobacco Use Status: Current someday Tobacco user Tobacco use type: Cigarette and Cigar e-Cigarette/Vaping Use: Never Used Second Hand Smoke Exposure: Yes service: No Current occupational status: retired Cognitive needs: No Hearing needs: No Vision needs: No Questionnaire PHQ-9 Over the last 2 weeks, how often have you been bothered by any of the following problems? 1. Little interest or pleasure in doing things: not at all 2. Feeling down, depressed, or hopeless: not at all 3. Trouble falling or staying asleep, or sleeping too much: not at all 4. Feeling tired or having little energy: not at all 5. Poor appetite or overeating: not at all 6. Feeling bad about yourself - or that you are a failure or have let yourself or your family down: not at all 7. Trouble concentrating on things, such as reading the newspaper or watching television: not at all 8. Moving or speaking so slowly that other people could have noticed. Or the opposite - being so fidgety or restless that you have been moving around a lot more than usual: not at all 9. Thoughts that you would be better off or of hurting yourself in some way: not at all Total score: 0 Depression Screening Interpretation: Negative Depression Screening Done: Yes 40387 - PHQ-9 Billing: Yes Source: Developed by Drs. Palomo Felipe, Danielle Parker, Erick Escalera and colleagues, with an educational karthik from [employer]. Thrive Questionnaire Date Thrive assessed: 03/05/24 I am a: Patient What is your living situation today?: I have a steady place to live Within the past 12 months, did the food you bought not last and you didn't have the money to get more?: Never true Within the past 12 months, did you worry whether your food would run out before you got money to buy more?: Never true Do you have trouble paying for medicines?: No Do you have trouble getting transportation to medical appointments?: No Do you have trouble paying your heating and electricity bill?: No Do you have trouble taking care of your child, family member or friend?: No Do you have trouble with day-to-day activities such as bathing, preparing meals, shopping, managing finances, etc.?: No Are you currently unemployed and looking for a job?: I choose not to answer this question Are you interested in more education?: No Please select the resources that you would like help with: None Currently or been in a relationship where the following occur: No concerns reported THRIVE Score: 0 AUDIT C Alcohol Use Questionnaire (AUDIT-C) 1. How often do you have a drink containing alcohol?: Monthly or less 2. How many drinks containing alcohol do you have on a typical day when you are drinking?: 5 or 6 3. How often do you have six or more drinks on one occasion?: Less than monthly Total Score: 4 ZION-7 AMB Questionnaire ZION-7 Date ZION - 7 assessed: 03/05/24 Feeling nervous, anxious, or on edge: 0 = Not at all Not being able to stop or control worryin = Not at all Worrying too much about different things: 0 = Not at all Trouble relaxin = Not at all Being so restless that it is hard to sit still: 0 = Not at all Becoming easily annoyed or irritable: 0 = Not at all Feeling afraid as if something awful might happen: 0 = Not at all Total ZION-7 score (0-4 normal; 5-9 mild; 10-14 moderate; 15-21 severe): 0 Source: Developed by Drs. Palomo Felipe, Danielle Parker, Erick Escalera and colleagues, with an educational karthik from [employer]. Physical exam (Primary Care) Tobacco/Smoking Status: Tobacco use Status Tobacco use date assessed 01/04/24 01/04/24 10:56 Patient Tobacco Use Status Current someday Tobacco 01/04/24 10:56 Tobacco use type Cigarette,Cigar 01/04/24 10:56 e-Cigarette/Vaping Use Never Used 01/04/24 10:56 Depression Screening Interpretation: Negative Thrive Assessment: Date of Thrive Assessment Date Thrive assessed 01/04/24 01/04/24 10:56 Currently or been in a relationship where the following occur: No concerns reported Coding Additional Codes PHQ-9 - 61172 - PHQ-9 Billing: Yes ([id number])
--- NOTE | 2024-03-05 09:43 | A.OFFPC_ITS ---
Vital Signs 03/05/24 09:37 Height 5 ft 7.5 in Weight 214 lb 8 oz BMI 33.1 BP 136/82 Blood Pressure Location Lt brachial Position Sitting Pulse 76 Pulse Source Pulse Oximeter Pulse Oximetry (%) 96 Oxygen Delivery Method Room Air Intake Visit Reasons: HTN, hyperlipidemia, vitamin D deficiency Allergies fish derived [FISH] Allergy (Severe, Verified 03/05/24 09:48) ANAPHYLAXIS seafood Allergy (Severe, Uncoded 03/05/24 09:48) Anaphylaxis Medication List - Last Reconciled 03/05/24 by SARAH Gerber atorvastatin 20 mg PO DAILY 90 days cholecalciferol (vitamin D3) 50 mcg PO DAILY 90 days epinephrine (EpiPen 2-Chalo) 0.3 mg (0.3 mL) IM Q4H PRN fluticasone propionate 50 mcg/actuation 2 sprays intranasal DAILY PRN 30 days lisinopril 5 mg PO DAILY 90 days Tobacco use date assessed: 03/05/24 Dental Screening Dental Screen Date: 03/05/24 Did you have a dental visit in the last 12 months?: Yes Did you have a dental problem in the last 6 months where you did not have access to dental care?: No Was dental information given to patient?: Patient has dentist HPI HTN, hyperlipidemia, vitamin D deficiency HPI Details The patient is a 63-year-old male with significant medical history of benign essential hypertension, hypercholesteremia, vitamin-D deficiency and eczema. The patient is present today for six-month follow-up. Patient reports that he is feeling well today and does not have any complaints. The patient reports that he is consuming a regular diet. He reports that he does cook with salt but does not add any to his food. Reports that he has 2 cuffs of coffee daily and had one cup prior to this visit. He denies smoking, but endorse couple glasses of wine about 2-3 days a week. Reports that he does not check his blood pressure at home. Reports that he is compliant with taking his lisinopril daily, but frequently missed taking his atorvastatin and vitamin d tablets. The patient reports that he is no longer taking the clotrimazole-betamethasone or triamcinolone acetonide. Her reports that he was seen by Dermotology and was prescribed a stronger steriod cream but does not remember the name at this time. Reports that he will try to remember and take picture of the cream for his next appt. He denies chest pain, sob, heart palpitation, headache, dizziness. He had his follow up labs done a few days ago - to discuss his results [facility] Medical History Seafood allergy Vitamin D deficiency Smoker Obesity (BMI 30-39.9) Pure hypercholesterolemia Benign essential hypertension Benign lymphoid polyp of colon Surgical History History of colonoscopy (~08/14/14) Hx laparoscopic cholecystectomy Family History Brother Substance abuse Other Alcohol abuse Social History Housing: House Alcohol intake: current Alcohol intake frequency: a few times a week Patient Tobacco Use Status: Current someday Tobacco user Tobacco use type: Cigarette and Cigar e-Cigarette/Vaping Use: Never Used Second Hand Smoke Exposure: Yes service: No Current occupational status: retired Cognitive needs: No Hearing needs: No Vision needs: No Questionnaire PHQ-9 Over the last 2 weeks, how often have you been bothered by any of the following problems? 1. Little interest or pleasure in doing things: not at all 2. Feeling down, depressed, or hopeless: not at all 3. Trouble falling or staying asleep, or sleeping too much: not at all 4. Feeling tired or having little energy: not at all 5. Poor appetite or overeating: not at all 6. Feeling bad about yourself - or that you are a failure or have let yourself or your family down: not at all 7. Trouble concentrating on things, such as reading the newspaper or watching television: not at all 8. Moving or speaking so slowly that other people could have noticed. Or the opposite - being so fidgety or restless that you have been moving around a lot more than usual: not at all 9. Thoughts that you would be better off or of hurting yourself in some way: not at all Total score: 0 Depression Screening Interpretation: Negative Depression Screening Done: Yes 92025 - PHQ-9 Billing: Yes Source: Developed by Drs. Palomo Felipe, Danielle Parker, Erick Escalera and colleagues, with an educational karthik from [employer]. Thrive Questionnaire Date Thrive assessed: 03/05/24 I am a: Patient What is your living situation today?: I have a steady place to live Within the past 12 months, did the food you bought not last and you didn't have the money to get more?: Never true Within the past 12 months, did you worry whether your food would run out before you got money to buy more?: Never true Do you have trouble paying for medicines?: No Do you have trouble getting transportation to medical appointments?: No Do you have trouble paying your heating and electricity bill?: No Do you have trouble taking care of your child, family member or friend?: No Do you have trouble with day-to-day activities such as bathing, preparing meals, shopping, managing finances, etc.?: No Are you currently unemployed and looking for a job?: I choose not to answer this question Are you interested in more education?: No Please select the resources that you would like help with: None Currently or been in a relationship where the following occur: No concerns reported THRIVE Score: 0 AUDIT C Alcohol Use Questionnaire (AUDIT-C) 1. How often do you have a drink containing alcohol?: Monthly or less 2. How many drinks containing alcohol do you have on a typical day when you are drinking?: 5 or 6 3. How often do you have six or more drinks on one occasion?: Less than monthly Total Score: 4 Score Reviewed/Action Taken: Yes ZION-7 AMB Questionnaire ZION-7 Date ZION - 7 assessed: 03/05/24 Feeling nervous, anxious, or on edge: 0 = Not at all Not being able to stop or control worryin = Not at all Worrying too much about different things: 0 = Not at all Trouble relaxin = Not at all Being so restless that it is hard to sit still: 0 = Not at all Becoming easily annoyed or irritable: 0 = Not at all Feeling afraid as if something awful might happen: 0 = Not at all Total ZION-7 score (0-4 normal; 5-9 mild; 10-14 moderate; 15-21 severe): 0 Source: Developed by Drs. Palomo Felipe, Danielle Parker, Erick Escalera and colleagues, with an educational karthik from [employer]. ZION-7 Assessment Billing ZION-7 Assessment Tool: ZION-7 Assessment 91963 Review of Systems Const Details: Const Denies chills, Denies fatigue, Denies fever(s), Denies headache(s) and Denies weakness ENT Denies dizziness and Denies headache(s) Card Denies chest pain, Denies lightheadedness, Denies dyspnea and Denies other (Palpitations) Resp Denies cough, Denies dyspnea, Denies wheezing and Denies other ( shortness of breath) GI Denies abdominal pain, Denies melena, Denies hematochezia, Denies change in bowel habits, Denies dyspepsia and Denies nausea Denies hematuria and Denies dysuria Musc Denies abnormal gait, Denies myalgias, Denies arthralgias, Denies numbness and Denies tingling Skin/Breast Denies rash, Denies unusual bruising and Denies wounds Neuro Denies abnormal gait, Denies dizziness, Denies headache(s), Denies memory loss, Denies numbness, Denies Sensory deficit (Neuro), Denies tingling and Denies weakness Psych Denies anxiety, Denies depression, Denies memory loss Endo Denies cold intolerance, Denies fatigue, Denies heat intolerance, Denies polydipsia and Denies polyuria Aller/Immun Denies wheezing Physical exam (Primary Care) Vital Signs: Last Vital Signs Pulse 76 03/05/24 09:37 BP 136/82 03/05/24 09:37 Pulse Ox 96 03/05/24 09:37 Oxygen Delivery Method Room Air 03/05/24 09:37 BMI result Body Mass Index 33.1 Tobacco/Smoking Status: Tobacco use Status Tobacco use date assessed 03/05/24 03/05/24 10:08 Patient Tobacco Use Status Current someday Tobacco 03/05/24 10:08 Tobacco use type Cigarette,Cigar 03/05/24 10:08 e-Cigarette/Vaping Use Never Used 03/05/24 10:08 PHQ-9: PHQ-9 Score PHQ-9: Total score 0 03/05/24 10:08 Depression Screening Interpretation: Negative Thrive Assessment: Date of Thrive Assessment Date Thrive assessed 03/05/24 03/05/24 10:08 Currently or been in a relationship where the following occur: No concerns reported Const Other: General: no acute distress and well developed Nutritional Appearance: well nourished Orientation/consciousness: patient oriented x3 [facility] Head: Yes normocephalic and Yes atraumatic Eyes General: appearance normal, both eyes and all related structures Pupils: Equal, round and reactive pupils present EOM: EOMs intact bilaterally Resp Effort & Inspection: normal respiratory effort Auscultation: clear to auscultation bilaterally Cardio Rate: regular rate Rhythm: regular rhythm Heart sounds: S1 normal heart sound present, S2 normal heart sound present, no gallops, no murmurs and no rubs GI Palpation (GI): No Abdominal aortic bruit present, Soft to palpation, nontender, No hepatosplenomegaly present and No Rebound tenderness present Auscultation: normal bowel sounds General: Yes no CVA tenderness Back/Spine/Pelvis Back: no CVA tenderness Cervical Spine: cervical ROM normal and No Cervical spine tenderness Thoracic/Lumbar Spine: thoraco-lumbar ROM normal, No pain with thoraco-lumbar ROM, No thoracic spinal tenderness and No lumbar spinal tenderness Extrem General: Yes normal to inspection, No edema and No calf tenderness Skin General: warm and dry. Normal skin color. Normal skin turgor Lesions: no lesions Rashes: no rashes Trauma: no lacerations or abrasions Wounds: no wounds Nails: normal Neuro General: patient oriented x3, gait normal and no focal neuro deficit Cranial nerves: Yes Equal, round and reactive pupils present Cognition (Neuro): normal cognition Gait exam (Neuro): Normal gait present Sensory Exam: No Sensory deficit (Neuro) Psych Appearance: grossly normal Affect: normal affect Attitude: cooperative Thought process: Normal thought process present Results Reviewed Results Reviewed: Laboratory Tests 02/29/24 06:12 Sodium 136 Potassium 4.1 Chloride 104 BUN 19 H Creatinine 1.08 Estimated GFR > 60 Fasting Glucose 106 H Hemoglobin A1c % 5.6 Calcium 9.3 Total Bilirubin 0.6 AST 25 ALT 34 Alkaline Phosphatase 66 Triglycerides 98 Cholesterol 242 H LDL Cholesterol, Calc 162 H HDL Cholesterol 61 25-OH Vitamin D Total 29.2 L Coding Level of Care Code Est Pt Level 4 (72561) Diagnoses Pure hypercholesterolemia E78.00 Benign essential hypertension I10 Vitamin D deficiency E55.9 Eczema, unspecified type L30.9 Eczema type: unspecified Obesity (BMI 30-39.9) E66.9 Additional Codes ZION-7 Assessment Billing - ZION-7 Assessment Tool: ZION-7 Assessment 82446 ([id number]) PHQ-9 - 01916 - PHQ-9 Billing: Yes ([id number]) Assessment & Plan Assessment & Plan (1) Pure hypercholesterolemia: Code(s): E78.00 - Pure hypercholesterolemia, unspecified Category: Medical Plan: The patient reports that he has been forgetting to take his atorvastatin 20 mg. The patient labs reviewed with him, which showed tht he total cholesterol increased, his LDL increased and his HDL slightly decreased. Reinforced the benefits of medication compliance and risk of having his cholesterol increasing. Spoke in detail about foods to avoid and exercising as tolerated. Lipid panel ordered for upon CPE appt in 6 months. (2) Benign essential hypertension: Code(s): I10 - Essential (primary) hypertension Category: Medical Plan: The patient blood pressure in the office is 136/82, slightly better than what it had been on previous visit. The patient reports that had a cup of coffee 30 minutes prior to this appt. The patient was encouraged to give himself 2 hour of no caffeine for the next visit; he was also encouraged to start checking his blood pressure at home. DASH diet reinforced Continue lisinopril 5mg, will follow up and next visit. (3) Vitamin D deficiency: Code(s): E55.9 - Vitamin D deficiency, unspecified Category: Medical Plan: Report forgetting to take his cholecalciferol 50 mcg most days. Level continues to be low, the patient was encouraged to come up with routine to take his medications The patient agrees and said he will make more of an effort Continue on same regimen, will recheck vitamin for upcoming PE in 6 months (4) Eczema: Code(s): L30.9 - Dermatitis, unspecified Category: Medical Qualifiers: Eczema type: unspecified Qualified Code(s): L30.9 - Dermatitis, unspecified Plan: The patient reports that his skin lesion He stopped taking his clotrimazole-betamethasone Reports that was prescribed a stronger topical steroid by Dermatology but he cannot remember the name. He will bring the a picture of the topical on next visit Will follow on next visit to see if his lesion continues to be resolved. (5) Obesity (BMI 30-39.9): Code(s): E66.9 - Obesity, unspecified Category: Medical Plan: Diet/exercise discussed in detail Encouraged to exercise for at least 30 minutes a day/5 days a week Healthy eating discussed. Encouraged to eat fruits/vegetables, protein- fish/baked chicken, and to avoid salty/fried foods, sweets, caffeine and carbohydrates. Encouraged to increase water intake 6-8 glasses a day Plan To return in 6 months for his next annual physical examination Orders: Orders Complete Blood Count Auto Diff 6 Months E55.9 - Vitamin D deficiency, unspecified, E66.9 - Obesity, unspecified, E78.00 - Pure hypercholesterolemia, unspecified, I10 - Essential (primary) hypertension, R73.01 - Impaired fasting glucose, Z00.00 - Encounter for general adult medical examination without abnormal findings Comprehensive [place]. Panel Fast 6 Months E55.9 - Vitamin D deficiency, unspecified, E66.9 - Obesity, unspecified, E78.00 - Pure hypercholesterolemia, unspecified, I10 - Essential (primary) hypertension, R73.01 - Impaired fasting glucose, Z00.00 - Encounter for general adult medical examination without abnormal findings TSH reflex Free T4 6 Months E55.9 - Vitamin D deficiency, unspecified, E66.9 - Obesity, unspecified, E78.00 - Pure hypercholesterolemia, unspecified, I10 - Essential (primary) hypertension, R73.01 - Impaired fasting glucose, Z00.00 - Encounter for general adult medical examination without abnormal findings Vitamin D 25-OH Total 6 Months E55.9 - Vitamin D deficiency, unspecified, E66.9 - Obesity, unspecified, E78.00 - Pure hypercholesterolemia, unspecified, I10 - Essential (primary) hypertension, R73.01 - Impaired fasting glucose, Z00.00 - Encounter for general adult medical examination without abnormal findings Glucose Fasting 6 Months E55.9 - Vitamin D deficiency, unspecified, E66.9 - Obesity, unspecified, E78.00 - Pure hypercholesterolemia, unspecified, I10 - Essential (primary) hypertension, R73.01 - Impaired fasting glucose, Z00.00 - Encounter for general adult medical examination without abnormal findings Hemoglobin A1c 6 Months E55.9 - Vitamin D deficiency, unspecified, E66.9 - Obesity, unspecified, E78.00 - Pure hypercholesterolemia, unspecified, I10 - Essential (primary) hypertension, R73.01 - Impaired fasting glucose, Z00.00 - Encounter for general adult medical examination without abnormal findings UA CC w/rflx Micro + Cult 6 Months E55.9 - Vitamin D deficiency, unspecified, E66.9 - Obesity, unspecified, E78.00 - Pure hypercholesterolemia, unspecified, I10 - Essential (primary) hypertension, R73.01 - Impaired fasting glucose, Z00.00 - Encounter for general adult medical examination without abnormal findings Lipid Panel 6 Months E55.9 - Vitamin D deficiency, unspecified, E66.9 - Obesity, unspecified, E78.00 - Pure hypercholesterolemia, unspecified, I10 - Essential (primary) hypertension, R73.01 - Impaired fasting glucose, Z00.00 - Encounter for general adult medical examination without abnormal findings
== END 2024-03-05 10:14 | disposition home or self-care (01) ==
PROVIDERS: PCP Internal Medicine; Visit Provider Internal Medicine
DX: E78.00 Pure hypercholesterolemia, unspecified (principal); E66.9 Obesity, unspecified; Z68.33 Body mass index [BMI] 33.0-33.9, adult; I10 Essential (primary) hypertension; E55.9 Vitamin D deficiency, unspecified; L30.9 Dermatitis, unspecified

== ENCOUNTER → 2024-03-05 09:36 | Outpatient (BNVA) | payer BC, SELFPAY | PROVIDERS: PCP Internal Medicine; Visit Provider Internal Medicine | DX: E78.00 Pure hypercholesterolemia, unspecified (principal); I10 Essential (primary) hypertension; E55.9 Vitamin D deficiency, unspecified; L30.9 Dermatitis, unspecified; E66.9 Obesity, unspecified; Z68.33 Body mass index [BMI] 33.0-33.9, adult; Z79.899 Other long term (current) drug therapy | CPT/HCPCS: 96127 ==

== ENCOUNTER 2024-07-30 18:32 | Emergency (ER) | payer BC, SELFPAY ==
--- NOTE | ~2024-07-30 | XR_ITS ---
CLINICAL HISTORY: cough, fever 2 view chest x-ray Comparison: None Findings: No consolidation, pneumothorax, or pleural effusion. Mild right basilar atelectasis/pneumonitis; subsegmental. Heart size within normal limits. Tortuosity thoracic aorta noted. Degenerative changes include imaged AC joints, left worse than right. IMPRESSION: Mild right basilar atelectasis/pneumonitis This document has been electronically signed by: Brendon Zimmerman MD on 07/30/2024 19:06:22
[2024-07-30 18:37] VITALS: BP 166/91; PULSE 93; RESP 19; TEMP 37.4; O2SAT 94; BMI 34.7
--- NOTE | 2024-07-30 18:37 | ED_ITS ---
HPI - General Adult General Chief complaint: Fever Stated complaint: fever 105 this afternoon took 2 tylenol @1730 Time Seen by Provider: 07/30/24 19:43 History of Present Illness ED Provider: HPI narrative: 63-year-old male with history of hypertension takes lisinopril presenting with body aches, reported fever at home, he states that it was 105 F but he was not sure, he had some congestion for the past 3 days, prior to that his had similar symptoms and prior to that when they went out his friend had similar symptoms as well. He has had some cough, nonproductive no abdominal pain no nausea no vomiting no abdominal pain. No rashes. Related Data Previous Rx's ?Medication ?Instructions ?Recorded epinephrine 0.3 mg/0.3 mL 0.3 mg (0.3 mL) IM Q4H PRN 02/23/22 injection, auto-injector (EpiPen anaphylaxis #2 ea 2-Chalo) cholecalciferol (vitamin D3) 50 50 mcg PO DAILY 90 days #90 caps 08/31/22 mcg (2,000 unit) capsule fluticasone propionate 50 2 spray intranasal DAILY PRN 03/02/23 mcg/actuation nasal allergy symptoms 30 days #16 grams spray,suspension atorvastatin 20 mg tablet 20 mg PO DAILY 90 days #90 tabs 06/19/23 lisinopril 5 mg tablet 5 mg PO DAILY 90 days #90 tabs 03/24/24 ondansetron 4 mg disintegrating 4 mg PO Q8H PRN nausea and 07/30/24 tablet vomiting #4 tabs Allergies Allergy/AdvReac Type Severity Reaction Status Date / Time fish derived [FISH] Allergy Severe ANAPHYLAXIS Verified 07/30/24 18:40 seafood Allergy Severe Anaphylaxis Uncoded 07/30/24 18:40 Review of Systems 2 Constitutional: Constitutional: Reports as per [facility] Past Medical History Medical History Seafood allergy Vitamin D deficiency Smoker Obesity (BMI 30-39.9) Pure hypercholesterolemia Benign essential hypertension Benign lymphoid polyp of colon Surgical History History of colonoscopy (~08/14/14) Hx laparoscopic cholecystectomy Family History Family History Brother Substance abuse Other Alcohol abuse Social History Social History Housing: House Alcohol intake: current Alcohol intake frequency: holidays/special occasions only Patient Tobacco Use Status: Current someday Tobacco user Tobacco use type: Cigarette and Cigar Smoked in Last 30 Days: No e-Cigarette/Vaping Use: Never Used Second Hand Smoke Exposure: Yes Use of substances other than those prescribed or required for medical reasons: No Advance Directives: No Advance Directives Information Provided: Yes Do you have a plan to hurt others: No Plan service: No Current occupational status: retired Cognitive needs: No Hearing needs: No Vision needs: No Physical Exam ED Vital Signs: Vital Signs - 24 hr 07/30/24 18:37 07/30/24 19:36 Temperature 99.3 F 99.8 F Pulse Rate 93 84 Respiratory Rate 19 17 Blood Pressure 166/91 H 130/77 Pulse Oximetry 94 92 Oxygen Delivery Method Room Air BMI result Body Mass Index 34.7 Const Other: * Gen: ?Overall well-appearing patient * Neck: Supple, no LAD * CV: RRR, no obvious murmurs appreciated * Resp: ?No wheezing rales rhonchi no stridor moving air well * Abd: ?Bowel sounds are present, no tenderness no rebound no rigidity * MSK: FROM, strength 5/5 all extremities * Skin: Warm, dry, intact, * Neuro: ?Alert and oriented x3, moving upper and lower extremities symmetrically, no obvious facial asymmetry noted Course Course Course Narrative: This is a rapid medical exam performed by Silvia Nguyen NP: Additional HPI, ROS, PE not included below will be deferred to primary provider. 63 yo male with PMHx of HLD, HTN, presents to the ED due to fever. Patient states he checked his temperature around 5pm with a heat scan thermometer which read 105. He states he has associated cough and congestion over 2 days. This evening with gver he reports total body chills, shaking and feeling on fire . 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 PE: 99.3 in triage Plan: labs, CXR, viral swabs Medications Administered Generic Name Dose Route Start Last Admin Trade Name Freq PRN Reason Stop Dose Admin Lactated Ringer's 1,000 mls @ 0 mls/hr 07/30/24 20:15 07/30/24 20:16 Lr IV 999 mls/hr .Q0M MARY Administration Wide Open Discontinued Medications Generic Name Dose Route Start Last Admin Trade Name Freq PRN Reason Stop Dose Admin Ketorolac Tromethamine 15 mg 07/30/24 20:08 07/30/24 20:15 Ketorolac Tromethamine 15 Mg/Ml Vial IVPUSH 07/30/24 20:09 15 mg ONCE ONE Administration Medical Decision Making Medical Decision Making [facility] Narrative: Well-appearing patient, he is nonfebrile, vital signs are stable, lungs are clear, chest x-ray but nonspecific findings per Radiology reading of pneumonitis or atelectasis, but clinically he has no rhonchi or rales, he did test positive for influenza A, I discussed with him what Tamiflu is and the fact that it may shortness symptoms but also may have some side effects of GI symptoms, he is otherwise healthy 63-year-old and he states he is not interested in using Tamiflu and I agree with his choice. Symptomatic control and discharge anticipated. Lab Data [facility] Lab Attestation statement: I reviewed the patient's lab results. 07/30/24 19:04 07/30/24 19:04 Labs: Lab Results 07/30/24 Range/Units 19:04 WBC 11.2 H (4.8-10.8) X10*3/uL RBC 5.33 (4.60-5.80) X10*6/uL Hgb 15.9 (14.0-18.0) g/dl Hct 46.0 (42.0-52.0) % MCV 86.3 (80.0-98.0) fL MCH 29.8 (27.0-33.0) pg MCHC 34.6 (31.0-36.0) g/dl RDW 12.8 (11.0-16.0) % Plt Count 183 (160-400) X10*3/uL MPV 10.3 (9.4-12.4) fL Immature Gran % (Auto) 0.3 (0.0-0.4) % Neut % (Auto) 78.8 H (45-73) % Lymph % (Auto) 11.8 L (20-40) % [place] % (Auto) 8.4 (2-11) % Eos % (Auto) 0.4 (0-4) % Baso % (Auto) 0.3 (0-2) % Lymph # (Auto) 1.3 (1.2-4.9) X10*3/uL [place] # (Auto) 0.9 (0.1-1.2) X10*3/uL Eos # (Auto) 0.1 (0.0-0.4) X10*3/uL Baso # (Auto) 0.0 (0.0-0.2) X10*3/uL Abs Immat Gran (auto) 0.03 (0.00-0.03) X10*3/uL Absolute Neuts (auto) 8.8 H (2.0-8.3) x10*3/uL Absolute Nucleated RBC 0.000 (0.0-0.012) X10*3/uL Nucleated RBC % (auto) 0.0 (0.0-0.2) /100WBC Sodium 138 (135-145) mmol/L Potassium 4.6 (3.3-5.1) mmol/L Chloride 102 (96-108) mmol/L Carbon Dioxide 25 (22-29) mmol/L Anion Gap 16 (12-20) BUN 17 H (9-16) mg/dL Creatinine 1.13 (0.5-1.4) mg/dL Estim Creat Clear Calc 75.0 Estimated GFR > 60 Random Glucose 124 H (60-115) mg/dL Calcium 8.9 (8.4-10.2) mg/dL Total Bilirubin 0.5 (0.0-1.0) mg/dL AST 37 (5-37) U/L ALT 42 H (0-40) U/L Alkaline Phosphatase 75 (39-117) U/L Total Protein 7.3 (6.5-8.0) g/dL Albumin 4.5 (3.5-5.0) g/dL Influenza Type A (PCR) POSITIVE A (Negative) Influenza Type B (PCR) NEGATIVE (Negative) RSV RNA Qual (PCR) NEGATIVE (Negative) SARS-CoV-2 RNA (RT-PCR) NEGATIVE (Negative) Radiology Impression Discussion of test interpretation with radiology: I have reviewed the radiologist's reading. Radiologist Impression: CLINICAL HISTORY: cough, fever 2 view chest x-ray Comparison: None Findings: No consolidation, pneumothorax, or pleural effusion. Mild right basilar atelectasis/pneumonitis; subsegmental. Heart size within normal limits. Tortuosity thoracic aorta noted. Degenerative changes include imaged AC joints, left worse than right. IMPRESSION: Mild right basilar atelectasis/pneumonitis Discharge Plan Discharge Clinical Impression: Influenza Patient Disposition: Home, Self-Care Additional Instructions: As discussed you tested positive for influenza a, there is a medication that could have prescribed Tamiflu but it shortens symptoms only briefly and also comes at a cost of GI symptoms, we decided that there is really no indication for you to take this medication. The rest of blood work and chest x-ray has been reassuring, there were some nonspecific findings on a chest x-ray per radiologist reveal such as pneumonitis or atelectasis which essentially means small areas of lung that get clogged from a mucous plug it is common to see this on the chest x-ray reads and nothing that would require antibiotics or other intervention but just make sure you have a healthy cough so you do not develop any consolidations ( infection ) in the lungs. Stay well hydrated, you can use any [id number] medications either Tylenol or ibuprofen or any other preparations for symptomatic control such as body aches, fever, and if something else is evolving and your feeling worse come back to the ER. Typically viral infections get worse days 3-5 from the day of onset and then they tend to get better. If you have any other concerns come back to the ER, you can use Zofran 4 mg every 6-8 hours needed for nausea and vomiting Prescriptions: New ondansetron 4 mg tablet,disintegrating 4 mg PO Q8H PRN (Reason: nausea and vomiting) Qty: 4 0RF No Action atorvastatin 20 mg tablet 20 mg PO DAILY 90 Days Qty: 90 1RF lisinopril 5 mg tablet 5 mg PO DAILY 90 Days Qty: 90 1RF epinephrine [EpiPen 2-Chalo] 0.3 mg/0.3 mL auto-injector 0.3 mg IM Q4H PRN (Reason: anaphylaxis) Qty: 2 0RF cholecalciferol (vitamin D3) 50 mcg (2,000 unit) capsule 50 mcg PO DAILY 90 Days Qty: 90 3RF fluticasone propionate 50 mcg/actuation spray,suspension 2 spray intranasal DAILY PRN (Reason: allergy symptoms) 30 Days Qty: 16 5RF Rx Instructions: administer into each nostril Print Language: Yemeni
[2024-07-30 19:08] LABS: MANUAL DIFF FLAG NO
[2024-07-30 19:13] LABS: Basophils Percent Auto 0.3 % (0-2); Eosinophils Absolute Auto 0.1 X10*3/uL (0.0-0.4); Eosinophils Percent Auto 0.4 % (0-4); Hemoglobin 15.9 g/dl (14.0-18.0); Imm Gran Abs Auto 0.03 X10*3/uL (0.00-0.03); Imm Gran Pct Auto 0.3 % (0.0-0.4); Lymphocytes Absolute Auto 1.3 X10*3/uL (1.2-4.9); Lymphocytes Percent Auto 11.8 % (20-40); Mean Corpuscular HGB Conc 34.6 g/dl (31.0-36.0); Mean Corpuscular Hemoglobin 29.8 pg (27.0-33.0); Mean Corpuscular Volume 86.3 fL (80.0-98.0); Mean Platelet Volume 10.3 fL (9.4-12.4); Monocytes Absolute Auto 0.9 X10*3/uL (0.1-1.2); Monocytes Percent Auto 8.4 % (2-11); Neutrophils Absolute Auto 8.8 x10*3/uL (2.0-8.3); Neutrophils Percent Auto 78.8 % (45-73); Platelet Count 183 X10*3/uL (160-400); Red Blood Count 5.33 X10*6/uL (4.60-5.80); Red Cell Distribution Width 12.8 % (11.0-16.0); White Blood Count 11.2 X10*3/uL (4.8-10.8)
[2024-07-30 19:25] LABS: Alanine Aminotransferase 42 U/L (0-40); Albumin Level 4.5 g/dL (3.5-5.0); Alkaline Phosphatase 75 U/L (39-117); Anion Gap 16 (12-20); Aspartate Amino Transferase 37 U/L (5-37); Bilirubin Total 0.5 mg/dL (0.0-1.0); Blood Urea Nitrogen 17 mg/dL (9-16); Calcium 8.9 mg/dL (8.4-10.2); Carbon Dioxide 25 mmol/L (22-29); Chloride 102 mmol/L (96-108); Estimated Glomerular Filt Rate > 60; Glucose Random 124 mg/dL (60-115); Potassium 4.6 mmol/L (3.3-5.1); Sodium 138 mmol/L (135-145); Total Protein 7.3 g/dL (6.5-8.0)
[2024-07-30 19:36] VITALS: BP 130/77; PULSE 84; RESP 17; TEMP 37.7; O2SAT 92
[2024-07-30 19:46] LABS: Influenza A PCR POSITIVE (Negative); Influenza B PCR NEGATIVE (Negative); Resp Syncy Virus RNA Qual PCR NEGATIVE (Negative); SARS COV2 PCR INHOUSE NEGATIVE (Negative)
[2024-07-30] MEDS: Ketorolac Tromethamine 15 MG/ML VIAL IVPUSH (20:15)
[2024-07-30] MEDS: Lactated Ringers 1,000 ML 999 ML IV (20:16)
[2024-07-30 21:08] VITALS: BP 139/88; PULSE 83; RESP 16; TEMP 36.8; O2SAT 98
[2024-07-30 21:09] VITALS: BP 139/88; PULSE 83; RESP 16; TEMP 36.8; O2SAT 98
== END 2024-07-30 21:11 | disposition home or self-care (01) ==
PROVIDERS: Registered Nurse Emergency; Emergency Provider Emergency Medicine; PCP Internal Medicine
DX: J10.1 Influenza due to other identified influenza virus with other respiratory manifestations (principal); R50.9 Fever, unspecified; M79.10 Myalgia, unspecified site; R05.9 Cough, unspecified; R11.0 Nausea; I10 Essential (primary) hypertension; F17.210 Nicotine dependence, cigarettes, uncomplicated; Z03.818 Encounter for observation for suspected exposure to other biological agents ruled out; Z79.899 Other long term (current) drug therapy
CPT/HCPCS: 0241U; 71046; 80053; 85025; 96361; 96374; 99284; 99285; J1885; J7120

== ENCOUNTER → 2024-07-30 18:42 | Outpatient (BNV) | payer BC, SELFPAY | PROVIDERS: Emergency Provider Emergency Medicine; PCP Internal Medicine; Visit Provider Radiology Neuroradiology | DX: R05.9 Cough, unspecified (principal); R50.9 Fever, unspecified | CPT/HCPCS: 71046 ==

== ENCOUNTER 2024-12-18 05:57 | Outpatient (REF) | payer BC, SELFPAY ==
--- OUTSIDE RECORDS SUMMARY | 2024-12-18 06:01 | XMS_ITS | Patient Health Record ---
Author Organization [facility] Address [address] [place] [address] Care Team Providers Care Gymnastic Coach Name Role Phone Le(inactive) Lon PASCUAL Primary Care Provider U Clifton Fry Jr Unavailable [phone] Allergies Allergen (clinical drug ingredient) Drug/Non Drug Allergy documented on EMR Reaction Allergy Type Onset Date Status Fish derivative (substance) ALL KINDS OF FISH (uncoded) Unknown Allergy Active Reason For Referral No Information Medications Medication SIG (Take, Route, Fr equency, Duration) Notes Start Date End Date Status Suprep Bowel Prep 1 as directed Orally 1 for 1 dose 04/29/2014 Active Lisinopril 5 MG TK 1 T PO ONCE A DAY Oral for 90 Active Problems Problem Type SNOMED Code ICD Code Onset Dates Problem Status W/U Status Risk Notes Problem [id number] Special screening for malignant neoplasms, colon (V76.51) Active confirmed Plan Of Treatment Future Test Test Name Order Date COLONOSCOPY 04/29/2014 Insurance Providers Payer Name Payer Address Payer Phone Subscriber Number Group Number Insured Name Patient Relationship to Insured Coverage Start Date Coverage End Date [facility] [address] [place] [phone] [id number] [place] [employer] Self - patient is the insured Medical (General) History Medical History History ICD Code hypertension Denies [place],DM,CVA,Lung disease,renal dise ase Surgical History Surgery Date(Month/Year) cholecystectomy
[2024-12-18 06:18] LABS: MANUAL DIFF FLAG NO
[2024-12-18 07:20] LABS: Hematocrit 44.6 % (42.0-52.0); Hemoglobin 15.7 g/dl (14.0-18.0); Imm Gran Abs Auto 0.01 X10*3/uL (0.00-0.03); Imm Gran Pct Auto 0.2 % (0.0-0.4); Lymphocytes Absolute Auto 1.7 X10*3/uL (1.2-4.9); Mean Corpuscular HGB Conc 35.2 g/dl (31.0-36.0); Mean Corpuscular Hemoglobin 30.0 pg (27.0-33.0); Mean Corpuscular Volume 85.3 fL (80.0-98.0); NRBC Abs Auto 0.000 X10*3/uL (0.0-0.012); NRBC Pct Auto 0.0 /100WBC (0.0-0.2); Platelet Count 205 X10*3/uL (160-400); Red Blood Count 5.23 X10*6/uL (4.60-5.80); White Blood Count 5.2 X10*3/uL (4.8-10.8)
[2024-12-18 07:32] LABS: Appearance Urine Clear; Glucose Urine UA Negative (Negative); PH 6.0 (5.0-9.0); Specific Gravity - Urine 1.025 (1.005-1.025)
[2024-12-18 07:39] LABS: Total Hemoglobin (HGBA1C) 3998.9368 umol/L
[2024-12-18 07:58] LABS: Alanine Aminotransferase 27 U/L (0-40); Albumin Level 4.5 g/dL (3.5-5.0); Alkaline Phosphatase 72 U/L (39-117); Anion Gap 11 (12-20); Aspartate Amino Transferase 26 U/L (5-37); Blood Urea Nitrogen 15 mg/dL (9-16); Calcium 9.2 mg/dL (8.4-10.2); Carbon Dioxide 28 mmol/L (22-29); Chloride 104 mmol/L (96-108); Cholesterol 245 mg/dL (<200); Estimated Glomerular Filt Rate > 60; HDL Cholesterol 62 mg/dL (>40); Potassium 4.2 mmol/L (3.3-5.1); Sodium 139 mmol/L (135-145); Total Protein 6.9 g/dL (6.5-8.0); Triglycerides 142 mg/dL (<150)
== END 2024-12-18 05:58 | disposition home or self-care (01) ==
LOC: HO.LAB 05:57
PROVIDERS: PCP Internal Medicine
DX: Z00.00 Encounter for general adult medical examination without abnormal findings (principal); E55.9 Vitamin D deficiency, unspecified; E78.00 Pure hypercholesterolemia, unspecified; E66.9 Obesity, unspecified; I10 Essential (primary) hypertension; R73.01 Impaired fasting glucose
CPT/HCPCS: 36415; 80053; 80061; 81003; 82306; 83036; 84443; 85025

== ENCOUNTER 2024-12-25 10:50 | Outpatient (AMB) | payer BC, SELFPAY ==
[2024-12-25 11:03] VITALS: BP 128/82; PULSE 70; O2SAT 96; BMI 33.8
--- NOTE | 2024-12-25 11:03 | MHC.PC.OV ---
Vital Signs 12/25/24 11:03 Height 5 ft 6 in Weight 209 lb 8 oz BMI 33.8 BP 128/82 Blood Pressure Location Lt brachial Position Sitting Pulse 70 Pulse Source Pulse Oximeter Pulse Oximetry (%) 96 Oxygen Delivery Method Room Air Intake Visit Reasons: annual exam Digital Campaign Manager Required: No Accompanied by: Self / Same As Patient Allergies fish derived (FISH) Allergy (Severe, Verified 12/25/24 11:46) ANAPHYLAXIS seafood Allergy (Severe, Uncoded 12/25/24 11:46) Anaphylaxis Medication List - Last Reconciled 12/25/24 by Alex Grady MD atorvastatin 20 mg PO DAILY 90 days cholecalciferol (vitamin D3) 50 mcg PO DAILY 90 days epinephrine (EpiPen 2-Chalo) 0.3 mg (0.3 mL) IM Q4H PRN fluticasone propionate 50 mcg/actuation 2 sprays intranasal DAILY PRN 30 days lisinopril 5 mg PO DAILY 90 days ondansetron 4 mg PO Q8H PRN Tobacco use date assessed: 12/25/24 Dental Screening Dental Screen Date: 12/25/24 Did you have a dental visit in the last 12 months?: Yes Did you have a dental problem in the last 6 months where you did not have access to dental care?: No Was dental information given to patient?: Patient has dentist HPI annual exam HPI Details Patient comes in today for his annual physical examination States that he feels okay Admits that he has been OFF Lisinopril for about 4 months now - relates that he ran out of his Rx a few months ago and could not get it refilled even though he contacted the office a few times requesting for his refill back then Notes that his blood pressure has been doing well over the past few months despite his not taking his blood pressure medication He denies any headaches or dizziness Denies any chest pains, no SOB No nausea/vomiting, no abdominal pain No change in bowel habits noted He denies any acute urinary symptoms Needs his Atorvastatin Rx refilled He had his follow up labs done last week - to discuss his results He had his screening colonoscopy last done in 2014 and states that he has already been contacted by Dr. Ruiz's office to schedule his next colonoscopy bit he has not been able to do so yet - states that he will try to reach out to them [facility] to get this scheduled [facility] Medical History Seafood allergy Vitamin D deficiency Smoker Obesity (BMI 30-39.9) Pure hypercholesterolemia Benign essential hypertension Benign lymphoid polyp of colon Surgical History (Updated 12/25/24 @ 11:47 by Alex Grady MD) History of colonoscopy Hx laparoscopic cholecystectomy Family History Brother Substance abuse Other Alcohol abuse Social History Housing: House Alcohol intake: current Alcohol intake frequency: holidays/special occasions only Patient Tobacco Use Status: Current someday Tobacco user Tobacco use type: Cigarette and Cigar e-Cigarette/Vaping Use: Never Used Second Hand Smoke Exposure: Yes service: No Current occupational status: retired Cognitive needs: No Hearing needs: No Vision needs: No Questionnaire PHQ-9 Over the last 2 weeks, how often have you been bothered by any of the following problems? 1. Little interest or pleasure in doing things: not at all 2. Feeling down, depressed, or hopeless: not at all 3. Trouble falling or staying asleep, or sleeping too much: not at all 4. Feeling tired or having little energy: not at all 5. Poor appetite or overeating: not at all 6. Feeling bad about yourself - or that you are a failure or have let yourself or your family down: not at all 7. Trouble concentrating on things, such as reading the newspaper or watching television: not at all 8. Moving or speaking so slowly that other people could have noticed. Or the opposite - being so fidgety or restless that you have been moving around a lot more than usual: not at all 9. Thoughts that you would be better off or of hurting yourself in some way: not at all Total score: 0 Depression Screening Interpretation: Negative Depression Screening Done: Yes 56622 - PHQ-9 Billing: Yes Source: Developed by Drs. Palomo Felipe, Danielle Parker, Erick Escalera and colleagues, with an educational karthik from [employer]. Thrive Questionnaire Date Thrive assessed: 12/25/24 I am a: Patient What is your living situation today?: I have a steady place to live Within the past 12 months, did the food you bought not last and you didn't have the money to get more?: Never true Within the past 12 months, did you worry whether your food would run out before you got money to buy more?: Never true Do you have trouble paying for medicines?: No Do you have trouble getting transportation to medical appointments?: No Do you have trouble paying your heating and electricity bill?: No Do you have trouble taking care of your child, family member or friend?: No Do you have trouble with day-to-day activities such as bathing, preparing meals, shopping, managing finances, etc.?: No Are you currently unemployed and looking for a job?: No Are you interested in more education?: No Please select the resources that you would like help with: None Currently or been in a relationship where the following occur: I choose not to answer THRIVE Score: 0 AUDIT C Alcohol Use Questionnaire (AUDIT-C) 1. How often do you have a drink containing alcohol?: 2-3 times a week 2. How many drinks containing alcohol do you have on a typical day when you are drinking?: 3 or 4 3. How often do you have six or more drinks on one occasion?: Less than monthly Total Score: 5 Score Reviewed/Action Taken: Yes ZION-7 AMB Questionnaire ZION-7 Date ZION - 7 assessed: 12/25/24 Feeling nervous, anxious, or on edge: 0 = Not at all Not being able to stop or control worryin = Not at all Worrying too much about different things: 0 = Not at all Trouble relaxin = Not at all Being so restless that it is hard to sit still: 0 = Not at all Becoming easily annoyed or irritable: 0 = Not at all Feeling afraid as if something awful might happen: 0 = Not at all Total ZION-7 score (0-4 normal; 5-9 mild; 10-14 moderate; 15-21 severe): 0 Source: Developed by Drs. Palomo Felipe, Danielle Parker, Erick Escalera and colleagues, with an educational karthik from [employer]. Review of Systems Const Denies chills, Denies fatigue, Denies fever(s), Denies headache(s), Denies malaise and Denies weakness Eyes Denies blurry vision, Denies change in vision, Denies irritation and Denies itchy eyes ENT Denies dysphagia, Denies dizziness, Denies otalgia, Denies headache(s), Denies nasal congestion, Denies neck pain, Denies odynophagia and Denies sore throat Card Denies chest pain, Denies rapid heart rate, Denies irregular heart rhythm, Denies palpitations and Denies dyspnea Resp Denies chest congestion, Denies cough, Denies dyspnea and Denies wheezing GI Denies abdominal pain, Denies bloating, Denies constipation, Denies dysphagia, Denies heartburn, Denies diarrhea, Denies nausea, Denies odynophagia and Denies vomiting Denies hematuria, Denies difficulty urinating, Denies dysuria, Denies urinary frequency and Denies urinary urgency Musc Denies back pain, Denies arthralgias, Denies joint swelling, Denies muscle weakness and Denies neck pain Skin/Breast Denies change in pigmentation, Denies lesions, Denies rash and Denies unusual bruising Neuro Denies dizziness, Denies headache(s), Denies paresthesias and Denies weakness Endo Denies fatigue and Denies palpitations Aller/Immun Denies itchy eyes and Denies wheezing Physical exam (Primary Care) Vital Signs: Last Vital Signs Pulse 70 12/25/24 11:03 BP 128/82 12/25/24 11:03 Pulse Ox 96 12/25/24 11:03 Oxygen Delivery Method Room Air 12/25/24 11:03 BMI result Body Mass Index 33.8 Tobacco/Smoking Status: Tobacco use Status Tobacco use date assessed 12/25/24 12/25/24 11:11 Patient Tobacco Use Status Current someday Tobacco 12/25/24 11:11 Tobacco use type Cigarette,Cigar 12/25/24 11:11 e-Cigarette/Vaping Use Never Used 12/25/24 11:11 PHQ-9: PHQ-9 Score PHQ-9: Total score 0 12/25/24 11:50 Depression Screening Interpretation: Negative Thrive Assessment: Date of Thrive Assessment Date Thrive assessed 12/25/24 12/25/24 11:11 Currently or been in a relationship where the following occur: I choose not to answer Const General: no acute distress, alert and awake Orientation/consciousness: patient oriented x3 HENOH Head: Yes normocephalic and Yes atraumatic Ears: external ears normal, TM's normal bilaterally and EAC's normal General nose exam: No nasal discharge present Face and sinus: Yes normal facial exam and Yes sinuses nontender Teeth and gingiva: dentition normal Throat: Yes posterior oropharynx normal and Yes tonsils normal (no TP congestion) Eyes Eyelids: Yes eyelids normal Conjunctivae: conjunctivae normal Pupils: Equal, round and reactive pupils present EOM: EOMs intact bilaterally Neck Neck: Yes no lymphadenopathy and Yes supple Thyroid: Thyroid normal Resp Auscultation: clear to auscultation bilaterally, no rales and no wheezes Cardio Rate: regular rate Rhythm: regular rhythm Heart sounds: no murmurs GI Palpation (GI): Soft to palpation, nontender and No hepatosplenomegaly present Auscultation: normal bowel sounds General: Yes no CVA tenderness Back/Spine/Pelvis Back: no CVA tenderness Thoracic/Lumbar Spine: thoracic and lumbar spine normal to inspection Skin Lesions: no lesions Rashes: no rashes Neuro General: patient oriented x3, moves all extremities, no focal motor deficits and CN's II-XI intact bilaterally Cranial nerves: Yes Equal, round and reactive pupils present Cognition (Neuro): normal cognition Gait exam (Neuro): Normal gait present Extrem General: Yes no clubbing, cyanosis or edema Results Reviewed Results Reviewed: Laboratory Tests 12/18/24 12/18/24 06:07 06:14 WBC 5.2 Hgb 15.7 Hct 44.6 Plt Count 205 Sodium 139 Potassium 4.2 Creatinine 0.99 Estimated GFR > 60 Fasting Glucose 103 H Hemoglobin A1c % 5.7 Calcium 9.2 AST 26 ALT 27 Triglycerides 142 Cholesterol 245 H LDL Cholesterol, Calc 155 H HDL Cholesterol 62 25-OH Vitamin D Total 30.5 TSH 2.50 Ur Specific [place] 1.025 Urine Protein Negative Urine Glucose (UA) Negative Urine Blood Negative Urine Nitrite Negative Ur Leukocyte Esterase Negative Coding Level of Care Code Est Pt Prev Care 40-64y(85234) Diagnoses Annual physical exam Z00.00 Pure hypercholesterolemia E78.00 Benign essential hypertension I10 Impaired fasting glucose R73.01 Vitamin D deficiency E55.9 Eczema, unspecified type L30.9 Eczema type: unspecified Obesity (BMI 30-39.9) E66.9 Additional Codes PHQ-9 - 15022 - PHQ-9 Billing: Yes ([id number]) Assessment & Plan Assessment & Plan (1) Annual physical exam: Code(s): Z00.00 - Encounter for general adult medical examination without abnormal findings Category: Medical Plan: Results of his labs done last week reviewed and discussed with patient He had his screening colonoscopy last done in 2014 and states that he has already been contacted by Dr. Ruiz's office to schedule his next colonoscopy bit he has not been able to do so yet - states that he will try to reach out to them [facility] to get this scheduled (2) Pure hypercholesterolemia: Code(s): E78.00 - Pure hypercholesterolemia, unspecified Category: Medical Plan: Reinforced low cholesterol diet Continue Atorvastatin 20 mg QD - Rx refilled Will recheck his labs and fasting lipids in 6 months for follow up (3) Benign essential hypertension: Code(s): I10 - Essential (primary) hypertension Category: Medical Plan: Reinforced low sodium diet - goal is systolic BP of 120 mm or less Patient admits that he has not been taking his Lisinopril for about 4 months now - states that he ran out of his Rx a few months ago and could not get it refilled even though he tried contacting the office a few times requesting for his refill back then Notes that his blood pressure has been doing well over the past few months despite his not taking his blood pressure medication He has also lost some weight lately and he thinks that this may have helped with his blood pressure As his blood pressure appears to be normal lately, will have him continue to HOLD his blood pressure medication for now Patient is instructed to continue monitoring his blooe pressure regularly (4) Impaired fasting glucose: Code(s): R73.01 - Impaired fasting glucose Category: Medical Plan: His HgbA1c was normal at 5.7% on his recent labs Reinforced low calorie/low carb diet Will continue to monitor his FBS and HgbA1c regularly (5) Vitamin D deficiency: Code(s): E55.9 - Vitamin D deficiency, unspecified Category: Medical Plan: Continue Vitamin D3 2000 units QD (6) Eczema: Code(s): L30.9 - Dermatitis, unspecified Category: Medical Qualifiers: Eczema type: unspecified Qualified Code(s): L30.9 - Dermatitis, unspecified Plan: Continue Lotrisone cream BID PRN Follow up with dermatology as scheduled (7) Obesity (BMI 30-39.9): Code(s): E66.9 - Obesity, unspecified Category: Medical Plan: Reinforced diet/exercise as tolerated/lose weight - he has been able to lose some weight since his last visit Plan Follow up in 6 months Orders: Orders Lipid Panel 6 Months E78.00 - Pure hypercholesterolemia, unspecified Comprehensive [place]. Panel Fast 6 Months E78.00 - Pure hypercholesterolemia, unspecified Complete Blood Count Auto Diff 6 Months D64.9 - Anemia, unspecified Medications: Refilled atorvastatin 20 mg PO DAILY 90 tabs 3RF 90 days On Hold lisinopril Hold Comment: Doctor's Order 5 mg PO DAILY 90 days 90 tabs 1RF
== END 2024-12-25 12:14 | disposition home or self-care (01) ==
LOC: HO.HMCH 10:51
PROVIDERS: PCP Internal Medicine; Visit Provider Internal Medicine
DX: Z00.00 Encounter for general adult medical examination without abnormal findings (principal); E78.00 Pure hypercholesterolemia, unspecified; I10 Essential (primary) hypertension; R73.01 Impaired fasting glucose; E55.9 Vitamin D deficiency, unspecified; L30.9 Dermatitis, unspecified; E66.9 Obesity, unspecified

== ENCOUNTER → 2024-12-25 10:50 | Outpatient (BNVA) | payer BC, SELFPAY | PROVIDERS: PCP Internal Medicine; Visit Provider Internal Medicine | DX: Z00.00 Encounter for general adult medical examination without abnormal findings (principal); E78.00 Pure hypercholesterolemia, unspecified; I10 Essential (primary) hypertension; R73.01 Impaired fasting glucose; E55.9 Vitamin D deficiency, unspecified; L30.9 Dermatitis, unspecified; E66.9 Obesity, unspecified; Z68.33 Body mass index [BMI] 33.0-33.9, adult; Z79.899 Other long term (current) drug therapy; Z13.31 Encounter for screening for depression; Z13.39 Encounter for screening examination for other mental health and behavioral disorders | CPT/HCPCS: 96127 ==